=== PATIENT | female | born 1945 | race Caucasian/White ===

== ENCOUNTER 2019-07-20 15:00 | Inpatient (IN) | payer MEDICARE ==
--- OUTSIDE RECORDS SUMMARY | 2019-07-20 15:20 | XMS REPORT | Summary of Care ---
:1945 Author Organization [facility] Address 1 [facility] [place] [address] Care Team Providers Name Role Phone Carroll Patel MD Primary Care Provider Reason for Referral Diagnostic Testing (Routine) Status Reason Specialty Diagnoses / Referred By Referred To Procedures Contact Contact Authorized Radiology Diagnoses S/P arterial stent Theron Thompson NP [facility] Procedures VL ABDOMEN DUPLEX AORTA GRAFT LIMITED [address] [place] [address] [address] [phone] Phone: Reason for Visit Reason Comments Follow Up Encounter Details Date Type Department Care Team Description 06/14/2019 Office Visit [facility], S/P arterial stent Surgery MD Irma (Primary Dx) [address] [facility] [place] [id number] [place] [address] Allergies Active Allergy Reactions Severity Noted Date Comments Bactrim Hives Codeine Other 04/27/[address] Dye Hives, Respiratory Reaction 04/27/2019 Keflex Hives 07/31/2007 documented as of this encounter (statuses as of 06/22/2019) Medications Medication Sig Dispensed Refills Start Date End Date Status clorazepate BID. 0 Active (TRANXENE-T) 7.5 MG PO TABS M-VIT PO TABS Take 1 Tab by 0 Active mouth *DAILY. VITAMIN E 400 UNIT PO Take 1 Tab by 0 Active TABS mouth *DAILY. SOJIZ-3-FDGP ETHYL 2 BID. 0 Active ESTERS (OMACOR) 1 GM PO CAPS Fenofibrate Micronized Take 1 Cap by 30 5 06/25/2008 Active (ANTARA) 130 MG Oral mouth DAILY. Cap PLAVIX 75 MG Oral Take 75 mg by 0 Active TabIndications: Other mouth DAILY. and unspecified hyperlipidemia albuterol Take 2 Puffs by 0 Active (PROVENTIL,VENTOLIN) inhalation EVERY 90 mcg/act FOUR HOURS NEEDED. albuterol-ipratropium 3 mg by 0 Active (DUO-NEB) 0.5-2.5 (3) Inhalation-SVN MG/3ML Inhalation route EVERY FOUR Solution HOURS NEEDED. docusate sodium Take 100 mg by 0 Active (COLACE) 100 MG Oral mouth DAILY. Cap Magnesium 400 MG Oral Take by mouth 0 Active Cap DAILY. aspirin 325 MG Oral Take 325 mg by 0 Active TabIndications: mouth DAILY. alternate days with 81 Indications: mg alternate days with 81 mg ondansetron (ZOFRAN) 8 Take 8 mg by mouth 0 Active MG Oral Tab NEEDED. Nutritional Take by mouth 0 Active Supplements (BOOST PO) DAILY. OMEPRAZOLE PO Take 40 mg by 0 Active mouth DAILY. Varenicline Tartrate Take 1 Package by 1 Kit 0 06/14/2019 Active (CHANTIX STARTING mouth DIRECTED. MONTH ) 0.5 MG X 11 & 1 MG X 42 Oral Misc documented as of this encounter (statuses as of 06/22/2019) Active Problems Problem Noted Date Chronic mesenteric ischemia 04/30/2019 Weight loss, unintentional 04/28/2019 Anxiety 04/28/2019 Ischemic colitis 04/12/2019 Carotid stenosis 08/08/2008 Tobacco use disorder COPD (chronic obstructive pulmonary disease) Other and unspecified hyperlipidemia Dyspepsia and other specified disorders of function of stomach Essential hypertension documented as of this encounter (statuses as of 06/22/2019) Immunizations Name Administration Dates Next Due Influenza (IM) Preservative Free 04/14/2019 documented as of this encounter Social History Tobacco Use Types Packs/Day Years Used Date Current Every Day Smoker Cigarettes 1 55 Smokeless Tobacco: Never Used Alcohol Use Drinks/Week oz/Week Comments No stopped about 10 years ago Alcohol Habits Answer Date Recorded How often do you have a drink containing alcohol? Not asked How many drinks containing alcohol do you have on a Not asked typical day when you are drinking? How often do you have six or more drinks on one Less than monthly 04/27/2019 occasion? Social Isolation Answer Date Recorded In a typical week, how many times do you More than three times a week 2018 talk on the phone with family, friends, or neighbors? How often do you get together with friends More than three times a week 04/27 or relatives? How often do you attend presybeterian or Never 04/27/2019 restorationism services? Do you belong to any clubs or No 04/27/2019 organizations such as presybeterian groups, unions, fraternal or athletic groups, or school groups? How often do you attend meetings of the Never 04/27/2019 clubs or organizations you belong to? Are you now , , , 04/27/2019 , never or living with a partner? Physical Activity Answer Date Recorded On average, how many days per week do you engage in moderate to 0 days 2018 strenuous exercise (like walking fast, running, jogging, dancing, swimming, biking, or other activities that cause a light or heavy sweat)? On average, how many minutes do you engage in exercise at this 0 min 2018 level? Stress Answer Date Recorded Do you feel stress - tense, restless, nervous, or anxious, Not at all 2018 or unable to sleep at night because your mind is troubled all the time - these days? Education Answer Date Recorded What is the highest level of school you have High school graduate 04/27/2019 completed or the highest degree you have received? Intimate Partner Violence Answer Date Recorded Within the last year, have you been afraid of your partner or No 04/27/2019 ex-partner? Within the last year, have you been humiliated or emotionally No 04/27/2019 abused in other ways by your partner or ex-partner? Within the last year, have you been kicked, hit, slapped, or No 04/27/2019 otherwise physically hurt by your partner or ex-partner? Within the last year, have you been raped or forced to have any No 04/27/2019 kind of sexual activity by your partner or ex-partner? Food Insecurity Answer Date Recorded Within the past 12 months, you worried that your food would Never true 2018 run out before you got money to buy more. Within the past 12 months, the food you bought just didn't Never true 2018 last and you didn't have money to get more. Transportation Needs Answer Date Recorded In the past 12 months, has lack of transportation kept you from No 04/27/2019 medical appointments or from getting medications? In the past 12 months, has lack of transportation kept you from No 04/27/2019 meetings, work, or getting things needed for daily living? Sex Assigned at Date Recorded Not on file Job Start Date Occupation Industry Not on file Not on file Not on file Travel History Travel Start Travel End No recent travel history available. documented as of this encounter Last Filed Vital Signs Vital Sign Reading Time Taken Comments Blood Pressure 101/62 06/14/2019 10:07 AM EST Pulse 92 06/14/2019 10:07 AM EST Temperature - - Respiratory Rate - - Oxygen Saturation - - Inhaled Oxygen Concentration - - Weight 52.2 kg (115 lb) 06/14/2019 10:07 AM EST Height 175.3 cm (5' 9") 06/14/2019 10:07 AM EST Body Mass Index 16.98 06/14/2019 10:07 AM EST documented in this encounter Progress Notes Theron Thompson NP - 06/14/2019 11:00 AM EST PATIENT: Pat Smith : 1945 DATE OF SERVICE: 06/14/2019 REFERRING PRACTITIONER: Theron Thompson PRIMARY CARE PROVIDER: Carroll Patel (Inactive) Subjective CHIEF COMPLAINT: No chief complaint on file. Subjective HISTORY OF PRESENT ILLNESS: Pat Smith is a 73-y.o. female who is seen in 1 month follow up status post: Procedure: Thoracic aortoram, abdominal aortogram, mesenteric angiogram, superior mesenteric artery angioplasty/stent, right brachial artery on 05/01/[address] Ceballos. Today patient reports she has been eating 3 meals plus a couple of snacks a day. She has gained a few more pounds from last visit. She denies any abdominal pain, nausea, or vomiting with eating. She denies any pain, numbness or tingling of right lower arm or hand. She denies any chest pain or shortness of breath. From Dr. Vásquez's note 05/02/2019 73-y.o.femalew/ history of HTN, HLD, R carotid endarterectomy, consulted forchronic mesenteric ischemiawho presents with abdominal pain associated with eating, N/V, and weight loss. Current Outpatient Medications Medication Sig albuterol (PROVENTIL,VENTOLIN) 90 mcg/act Take 2 Puffs by inhalation EVERY FOUR HOURS NEEDED. albuterol-ipratropium (DUO-NEB) 0.5-2.5 (3) MG/3ML Inhalation Solution 3 mg by Inhalation-SVNroute EVERY FOUR HOURS NEEDED. aspirin 325 MG Oral Tab Take 325 mg by mouth DAILY. Indications: alternate days with 81 mg clorazepate (TRANXENE-T) 7.5 MG PO TABS BID. docusate sodium (COLACE) 100 MG Oral Cap Take 100 mg by mouth DAILY. Fenofibrate Micronized (ANTARA) 130 MG Oral Cap Take 1 Cap by mouth DAILY. M-VIT PO TABS Take 1 Tab by mouth *DAILY. Magnesium 400 MG Oral Cap Take by mouth DAILY. Nutritional Supplements (BOOST PO) Take by mouth DAILY. MYDDY-4-ASSR ETHYL ESTERS (OMACOR) 1 GM PO CAPS 2 BID. OMEPRAZOLE PO Take 40 mg by mouth DAILY. ondansetron (ZOFRAN) 8 MG Oral Tab Take 8 mg by mouth NEEDED. PLAVIX 75 MG Oral Tab Take 75 mg by mouth DAILY. VITAMIN E 400 UNIT PO TABS Take 1 Tab by mouth *DAILY. No current facility-administered medications for this visit. Allergies Allergen Reactions Bactrim Hives Codeine Other Keeps her awake Contrast [Ct Dye] Hives and Respiratory Reaction Keflex Hives Objective PHYSICAL EXAMINATION: VITALS: LMP (LMP Unknown) GENERAL: awake, alert, oriented. NECK: no mass, no adenopathy, no thyromegaly. ABDOMEN: soft, non tender, without masses or organomegaly. EXTREMITIES: no clubbing, cyanosis, or edema. NEUROLOGICAL: Oriented X 3, no focal deficits noted. PULSES: left radial +2 normal and right radial +2 normal. INCISION: Well healed DIAGNOSTICS: 06/14/2019 IMPRESSIONS: Hx: SMA stenting, patient denies symptoms. Duplex imaging of the stented SMA shows it to be widly patent with a proximal velocity of 470cm/s. No previous exam. Plan IMPRESSION AND PLAN: Pat Post is progressing well. The wound is well healed. Duplex indicating widely patient stent with increased velocity of 470 cm/s. ICD-9-CM ICD-10-CM 1. S/P arterial stent V45.89 Z95.[address] Ceballos. Please refer to his note for further details. Continue ASA and Plavix. Recommend walking for exercise. Lengthy discussion of smoking cessation. Patient willing to try Chantix. Patient to follow up with PCP next week. Follow up with Vascular Surgery in 6 months for abdominal duplex or sooner with problems. Author: Theron Thompson NP 06/14/2019 09:59 Associated attestation - Irma Ceballos MD - 06/22/2019 1:51 PM [facility] Supervising MD Documentation Date of Service: 06/14/2019. B# [id number] I saw and evaluated the patient. Discussed with resident and agree with the resident's findings andplan as documented in the resident's note. Additional Comments: Patient doing well, tolerating diet, has gained weight, no complaints. Denies postprandial pain. Patient continues to smoke. Mesenteric artery duplex demonstrated widely patent SMA stent. Left brachial access clean dry intact. I emphasized the patient the importance of smoking cessation and the risk of recurrent stent stenosis and occlusion with continued smoking and the need for open repair. Patient seems not motivated. Continue aspirin Plavix for now. Follow-up in 6 months. All questions and concerns were addressed. Irma Ceballos MD Supervising Physiciandocumented in this encounter Plan of Treatment Date Type Specialty Care Team Description 12/20/2019 Ancillary Procedure Radiology 12/20/2019 Office Visit Vascular Surgery Irma Ceballos MD [address] [address] [phone] Name Type Priority Associated Diagnoses Order Schedule VL ABDOMEN DUPLEX AORTA Imaging Routine S/P arterial stent Expected: 2018, GRAFT LIMITED Expires: 08/12/2020 Health Maintenance Due Date Last Done Comments MEDICARE ANNUAL WELLNESS VISIT 1945 DTaP/Tdap/Td Vaccines (1 - 1954 Tdap) DEPRESSION SCREENING 1955 HIV SCREENING 1958 MAMMOGRAM (SCREENING) 1983 Colonoscopy 1993 ZOSTER IMMUNIZATION SERIES (1 1993 of 2) FALL RISK ASSESSMENT 2008 OSTEOPOROSIS SCREENING 2008 PNEUMOCOCCAL 65+YRS (1 of 2 - 2008 PCV13) LIPID DISORDER SCREENING 12/06/2009 12/06/2008, 12/26/2007 LUNG CANCER SCREENING 04/28/2020 04/28/2019 INFLUENZA VACCINE Completed 04/14/2019 HEPATITIS A IMMUNIZATION Aged Out No longer eligible based SERIES on patient's age to complete this topic HPV IMMUNIZATION SERIES Aged Out No longer eligible based on patient's age to complete this topic MENINGOCOCCAL VACCINE IMM Aged Out No longer eligible based on patient's age to complete this topic documented as of this encounter Implants Implanted Type Area Web Merchant Device Shelf Model / Identifier Expiration Date Serial / Lot Visi-Pro Stent 0.035" [id number] - [id number] Left: Artery, [employer] [id number] / Implanted: Qty: 1 on 05/01/2019 by Irma Ceballos MD at [facility] / [id number] documented as of this encounter Results Not on filedocumented in this encounter Visit Diagnoses Diagnosis S/P arterial stent documented in this encounter Insurance Payer Benefit Plan / Subscriber ID Effective Dates Phone Address Type Group MEDICARE MEDICARE PART A xxxxxxxxxxx 2008-Present Medicare & B [facility] xxxxxxxxxxx 2018-Present [facility] OPTIONS documented as of this encounter Advance Directives Code Status Date Activated Date Inactivated Comments Full Code 04/27/2019 11:10 PM Does the patient have decision making capacity? Yes Order was discussed with: Patient I discussed all options and patient/surrogate requested and agreed to: Full Code Full Code 04/12/2019 12:48 AM 04/27/2019 4:23 PM Does the patient have decision making capacity? Yes Order was discussed with: Unable to determine at this time I discussed all options and patient/surrogate Full Code requested and agreed to:
--- NOTE | 2019-07-20 15:55 | ED ---
Palpitations / Dysrhythmia - HPI Summary HPI Summary: Pt is a 73 y/o F presenting to the ED with a chief complaint of palpitations. Pt states she had an echocardiogram this morning at Dr. Whyte office, Dr. Rodriguez looked at it, and advised the pt to come into the ED to be evaluated as she was possibly in AFib and her EF was not good. She reports coughing and some SOB w/ exertion, woo after recent dx of CHF and recent medication changes. She denies CP. Takes lasix. - History of Current Complaint Chief Complaint: EDDysrhythmPalp Time Seen by Provider: 07/20/19 15:34 Hx Obtained From: Patient Onset/Duration: Sudden Onset, Lasting Hours, Still Present Timing: Constant Severity Initially: Mild Severity Currently: Mild Character: Irregular Aggravating: Nothing Alleviating: Nothing Associated Signs & Symptoms: Shortness of Breath - Allergy/Home Medications Allergies/Adverse Reactions: Allergies Allergy/AdvReac Type Severity Reaction Status Date / Time Sulfa (Sulfonamide Allergy Severe Anaphylatic Verified 10/06/18 10:29 Antibiotics) Shock cephalexin [From Keflex] Allergy Mild Rash And Verified 10/06/18 10:29 Itching codeine Allergy Mild Anxiety Verified 10/06/18 10:29 Iodinated Contrast Media Allergy Mild Rash And Verified 10/06/18 10:29 [Iodinated Contrast- Oral Itching and IV Dye] Dieusqu-Klc-Tlp Reductase Allergy Unknown Verified 10/06/18 10:29 Inhibitor Reaction Details sulfamethoxazole Allergy Unknown Verified 10/06/18 10:29 [From Bactrim] Reaction Details trimethoprim [From Bactrim] Allergy Unknown Verified 10/06/18 10:29 Reaction Details Home Medications: Home Medications Aspirin EC TAB* [Ecotrin EC Low Dose 81 MG*] 81 mg PO EVERY OTHER DAY 07/20/19 [ History Confirmed 07/20/19] Furosemide TAB* [Lasix TAB*] 40 mg PO DAILY 07/20/19 [History Confirmed 07/20/19 ] Lactose-Reduced Food [Boost] 237 ml PO DAILY 07/20/19 [History Confirmed ] Potassium Gluconate [Potassium] 99 mg PO DAILY 07/20/19 [History Confirmed 07/20] Triamterene/HCTZ 75-50 MG* [Maxzide 75-50*] 1 tab PO DAILY 07/20/19 [History Confirmed 07/20/19] PMH/Surg Hx/FS Hx/Imm Hx Previously Healthy: Yes Endocrine/Hematology History: Reports: Hx Anticoagulant Therapy - plavix, asa, Hx Anemia Denies: Hx Diabetes Cardiovascular History: Reports: Hx Congestive Heart Failure - recent dx as of , Hx Coronary Artery Disease, Hx Hypertension - on meds, Other Cardiovascular Problems/Disorders - STENT IN RIGHT CAROTID ARTERY 2008 Respiratory History: Reports: Hx Chronic Obstructive Pulmonary Disease (COPD) GI History: Reports: Other GI Disorders - ischemic colitis w/ stent placed History: Denies: Hx Dialysis, Hx Renal Disease Musculoskeletal History: Reports: Hx Arthritis Sensory History: Reports: Hx Cataracts - BILAT, Hx Contacts or Glasses Denies: Hx Hearing Aid Opthamlomology History: Reports: Hx Cataracts - BILAT, Hx Contacts or Glasses Neurological History: Reports: Other Neuro Impairments/Disorders - carotid stent Psychiatric History: Reports: Hx Anxiety - Cancer History Cancer Type, Location and Year: non-hodgkin's follicular lymphoma, in remission for 3yrs as of 07/20/2019 Hx Chemotherapy: Yes - Surgical History Surgery Procedure, Year, and Place: tonsillectomy, appy, tubal, carotid stent, cyst removed from right breast Hx Anesthesia Reactions: No Infectious Disease History: No Infectious Disease History: Denies: Traveled Outside the [place] in Last 30 Days - Family History Known Family History: Positive: Other - SBO - Social History Alcohol Use: None Hx Substance Use: No Substance Use Type: Reports: None Hx Tobacco Use: Yes Smoking Status (MU): Current Every Day Smoker Type: Cigarettes Amount Used/How Often: 1/2 ppd Length of Time of Smoking/Using Tobacco: 50 YRS Have You Smoked in the Last Year: Yes Review of Systems Positive: Palpitations. Negative: Chest Pain Positive: Shortness Of Breath - w/ exertion, Cough All Other Systems Reviewed And Are Negative: Yes Physical Exam - Summary Physical Exam Summary: Constitutional: Elderly, chronically ill-appearing, Alert. (-) Distressed Skin: Warm, Dry HENT: Normocephalic; Atraumatic Eyes: Conjunctiva normal Neck: Musculoskeletal ROM normal neck. (-) JVD, (-) Stridor, (-) Nuchal rigidity Cardio: Rhythm regular, rate tachycardic, Heart sounds normal; Intact distal pulses; Radial pulses are 2+ and symmetric. (-) Murmur Pulmonary/Chest wall: Effort normal. (-) Respiratory distress, Mild expiratory wheezing, (-) Rales Abd: Soft, (-) tenderness, (-) Distension, (-) Guarding, (-) Rebound Musculoskeletal: (-) Edema Lymph: (-) Cervical adenopathy Neuro: Alert, Oriented x3 Psych: Mood and affect Normal Triage Information Reviewed: Yes Vital Signs On Initial Exam: Initial Vitals Temp Pulse Resp BP Pulse Ox 98.4 F 97 22 121/72 99 07/20/19 15:04 07/20/19 15:04 07/20/19 15:04 07/20/19 15:04 07/20/19 15:04 Vital Signs Reviewed: Yes Procedures - Sedation Patient Received Moderate/Deep Sedation with Procedure: No Diagnostics - Vital Signs Vital Signs Temp Pulse Resp BP Pulse Ox 07/20/19 15:04 98.4 F 97 22 121/72 99 - Laboratory Result Diagrams: 07/20/19 15:44 07/20/19 15:44 Lab Statement: Any lab studies that have been ordered have been reviewed, and results considered in the medical decision making process. - Radiology CXR Radiology Interpretation Completed By: Radiologist Summary of Radiographic Findings: Pulmonary interstitial edema with bilateral pleural effusions. ED physician has reviewed this report. - EKG 1515 Cardiac Rate: Tachycardia - 94bpm EKG Rhythm: Sinus Tachycardia ST Segment: Normal Ectopy: PVCs Summary of EKG Findings: An EKG at 1515 reveals sinus tachycardia at 94bpm with PVCs. No STEMI. No acute changes. ED physician has reviewed and interpreted this EKG. Course/Dx - Course Course Of Treatment: 73-year-old female with a history of recently diagnosed CHF , COPD who presents with concern for worsening heart failure and new tachycardia found on echo today. -Vital signs of heart rate in the low 90s to low 100s, sinus arrhythmia. Mild expiratory wheezing on exam. Labs notable for troponin 0.03, elevated BNP 1200. Magnesium of 1.7 repleted, as well as potassium 3.8. -Chest x-ray shows interstitial edema bilateral pleural effusions. Patient to be admitted to the hospitalist team for worsening heart failure, cardiology to be consulted. Will attempt to get echo record from [place] - Diagnoses Provider Diagnoses: CHF (congestive heart failure) Discharge ED - Sign-Out/Discharge Documenting (check all that apply): Patient Departure - Discharge Plan Condition: Stable Disposition: ADMITTED TO [facility] Referrals: Thompson Whyte, [Primary Care Provider] - - Billing Disposition and Condition Condition: STABLE Disposition: Admitted to [facility] - Attestation Statements Document Initiated by Scribe: Yes Documenting Scribe: Merle Spencer Provider For Whom Scribe is Documenting (Include Credential): Niurka Dick MD. Scribe Attestation: Merle Wang, scribed for Niurka Dick MD. on 07/20/19 at 1724. Scribe Documentation Reviewed: Yes Provider Attestation: The documentation as recorded by the scribe, Merle Spencer accurately reflects the service I personally performed and the decisions made by me, Niurka Dick MD. Status of Scribe Document: Viewed Consult Consult: [id number] - I spoke with Dr. Lance who accepts pt for [facility]
[2019-07-20 15:58] LABS: ABS Eosinophils 0.1 10^3/ul (0-0.6); ABS Lymphocytes 1.1 10^3/ul (1.0-4.8); ABS Monocytes 0.7 10^3/ul (0-0.8); ABS Neutrophils 4.1 10^3/ul (1.5-7.7); Eosinophil % 2.1 %; Hematocrit 32 % (35-47); Hemoglobin 10.3 g/dL (12.0-16.0); Lymphocyte % 18.1 %; Mean Corpuscular HGB Conc 33 g/dL (31-36); Mean Corpuscular Hemoglobin 30 pg (27-31); Mean Corpuscular Volume 92 fL (80-97); Mean Platelet Volume 7.1 fL (7.4-10.4); Nucleated Red Blood Cells % 0.1; Platelet Count 284 10^3/uL (150-450); Red Blood Count 3.45 10^6 /uL (3.70-4.87); Red Cell Distribution Width 16 % (10-15)
[2019-07-20 16:08] LABS: INR 1.45 (0.82-1.09)
[2019-07-20 16:24] LABS: Troponin I 0.03 ng/mL (<0.03)
[2019-07-20 16:26] LABS: ALT 77 U/L (7-52); AST 34 U/L (13-39); Albumin 3.3 g/dL (3.2-5.2); Albumin/Globulin Ratio 1.6 (1-3); Alkaline Phosphatase 121 U/L (34-104); Anion Gap 6 mmol/L (2-11); BUN/Creatinine Ratio 38.9 (8-20); Blood Urea Nitrogen 21 mg/dL (6-24); CO2 Carbon Dioxide 31 mmol/L (22-32); Calcium 8.2 mg/dL (8.6-10.3); Chloride 97 mmol/L (101-111); EGFR African American 133.2 (>60); EGFR Non-African American 110.1 (>60); Globulin 2.1 g/dL (2-4); Glucose 106 mg/dL (70-100); Magnesium 1.7 mg/dL (1.9-2.7); Potassium 3.8 mmol/L (3.5-5.0); Sodium 134 mmol/L (135-145); Total Protein 5.4 g/dL (6.4-8.9)
[2019-07-20] MEDS ORDERED: Potassium Chlor TAB* 20 MEQ TAB.ER PO ONE (16:39)
[2019-07-20] MEDS ORDERED: Magnesium Sulfate IV* 3 GM in NS 0.9% 100 ML* 100 ML IVPB ONE (16:39)
[2019-07-20 16:47] LABS: TSH (Thyroid Stimulating Horm) 3.88 mcIU/mL (0.34-5.60)
[2019-07-20] MEDS ORDERED: NS 0.9% 100 ML* 100 ML ONE (17:01)
[2019-07-20] MEDS ORDERED: Polyethylene Glycol 3350* 17 GM PACKET PO PRN (17:52)
[2019-07-20] MEDS ORDERED: Furosemide IV* 10 MG/ML VIAL (40 MG) IV ONE (18:02)
[2019-07-20] MEDS ORDERED: Magnesium Sulfate 2 GM IV* 2 GM/50 ML BAG IVPB ONE (18:19)
[2019-07-20 18:54] LABS: Total Iron Binding Capacity 406 mcg/dL (250-450); Transferrin 290 mg/dL (203-362)
[2019-07-20 19:16] LABS: Ferritin 39.2 ng/mL (11-307)
[2019-07-20 19:19] LABS: Folate > 20.00 ng/mL (>3.99)
[2019-07-20 19:34] LABS: % Iron Saturation 5 % (15-55); Iron < 20 ug/dL (50-212)
[2019-07-20 19:34] LABS: Troponin I 0.04 ng/mL (<0.03)
[2019-07-20] MEDS: Enoxaparin(*) 40 MG/0.4 ML SYR SUBCUT SCH (20:14)
[2019-07-20] MEDS: Albuterol/Ipratropium NEB.SOL* Albuterol 2.5 MG/Ipratropium 0.5 MG 3 ML INH SCH ×2 (20:17→23:12)
--- NOTE | 2019-07-20 21:40 | HP ---
CC: Dr. Thompson Whyte; Dr. Sudha Wu; Dr. Eric Rodriguez * HISTORY AND PHYSICAL: DATE OF ADMISSION: 07/20/19 PRIMARY CARE PROVIDER: Dr. Thompson Whyte. OTHER PROVIDERS: 1. Dr. Sudah Wu. 2. Dr. Eric Rodriguez. ATTENDING PHYSICIAN: Dr. Eren Lance * (dictated by JOSE RAUL Sawyer). CHIEF COMPLAINT: Shortness of breath, lower extremity edema. HISTORY OF PRESENT ILLNESS: Ms. Smith is a 73-year-old female with past medical history of hypertension, hyperlipidemia, carotid artery stenosis with right- sided stent placement, who presented to the ER today at the suggestion of her primary care provider after abnormal findings on her echo performed this morning. The patient states Dr. Rodriguez called Dr. Whyte, who then called the patient recommending that she come to [facility] for admission for an EF of less than 20%, which is a new finding. She was also noted to have a heart rate of 144 and was in atrial fibrillation during her examination. The patient states that she has been in and out of the hospital since May and that this will be her seventh admission since that time with a range of diagnoses including bronchitis, COPD exacerbation, pneumonia, heart failure exacerbation. She states that she has not felt completely well since May and that she has had heart failure exacerbation symptoms since May, but they have worsened in the last approximately 1 week. She states that she has had an increase in cough which is occasionally productive, although she denies fever, chills, but is intermittently cold. She reports increased shortness of breath, but remains on her baseline 3 L of oxygen. She also complains of dyspnea on exertion, paroxysmal nocturnal dyspnea leading to her sleeping in a chair most nights. She has bilateral lower extremity edema which has decreased recently, but she notes that her legs were very edematous approximately 2 days ago. She denies recent diet changes or medications. She denies recent illness. She denies chest pain. She denies dizziness, lightheadedness, loss of consciousness, difficulty swallowing or speaking. Again, she denies chest pain. She denies abdominal pain, nausea, vomiting , diarrhea, constipation, myalgias, arthralgias. In the ER, the patient received a full workup which revealed a normocytic anemia , which is chronic. An INR was elevated to 1.45. Troponin elevated to 0.03. Magnesium was 1.7. BNP was elevated to 1200. An EKG was obtained and revealed heart rate of 94 with PACs and no ST changes. Chest x-ray shows pulmonary edema with bilateral pleural effusions. In the ER, the patient received potassium 40 mg p.o. Hospitalist team was asked to evaluate the patient for admission. PAST MEDICAL HISTORY: 1. Hypertension. 2. Hyperlipidemia. 3. COPD. 4. Carotid artery stenosis, status post stenting. 5. Peripheral vascular disease. 6. History of non-Hodgkin lymphoma, status post chemo in 2016, follows with Dr. Wu. 7. Depression. 8. Iron deficiency anemia. PAST SURGICAL HISTORY: 1. Mesenteric artery stenting for ischemic colitis at [facility]. 2. Right carotid artery stent. 3. Appendectomy. 4. Tonsillectomy. 5. Tubal ligation. 6. Hysterectomy. HOME MEDICATIONS: 1. Albuterol HFA inhaler 2 puffs inhalation q.4 hours p.r.n. 2. Aspirin 81 mg ever other day, alternating with 325 mg every other day. 3. Clopidogrel 75 mg p.o. daily. 4. Docusate 100 mg p.o. daily. 5. Furosemide 40 mg p.o. daily. 6. Boost 237 mL p.o. daily. 7. Multivitamins 1 tab p.o. b.i.d. 8. Omeprazole 40 mg p.o. daily. 9. Ondansetron 8 mg p.o. q.8 hours p.r.n. 10. Polyethylene glycol 17 g p.o. q.3 days p.r.n. 11. Potassium gluconate 99 mg p.o. daily. 12. Vitamin E cap 400 units p.o. b.i.d. DRUG ALLERGIES: 1. SULFA/BACTRIM, anaphylaxis. 2. CEPHALEXIN, rash, itching. 3. CODEINE, anxiety. 4. IODINATED CONTRAST, rash, itching. 5. STATINS. FAMILY HISTORY: Father had emphysema. Mother had atherosclerosis. No family history of cancer, CVA, diabetes mellitus. SOCIAL HISTORY: The patient is a current smoker. She smokes 1 pack per day for approximately 55 years. She does not use alcohol. 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 She is . She has 3 children. She lives with one of her sons. In the event that she is unable to make her own medical decision, she has appointed her daughter, Marlena Ayala, to be her surrogate decision maker. REVIEW OF SYSTEMS: A 14-point review of systems has been performed. All the pertinent positives and negatives are in the HPI. Other systems are negative. PHYSICAL EXAMINATION GENERAL: Ms. Smith is a well-developed, thin, malnourished appearing older white woman who appears somewhat older than her stated age. She was sitting at the edge of her bed with her lower extremities on the floor. She appears to be in no acute distress, although she has some mild increased work of breathing, but can still talk in full sentences. HEENT: PERRL. EOMI. Visual higgins are grossly intact. Nonicteric sclerae. Hearing is intact. Oral mucous membranes are moist. There are no lesions. Oropharynx is clear. Tongue is at midline. Palate elevates symmetrically. PULMONARY: Symmetrical chest expansion without use of accessory muscles. There are fine rales throughout bilateral lungs with end-expiratory wheezes. Breath sounds are diminished throughout. CARDIOVASCULAR: Sinus tachycardia. S1, S2 present. No murmurs, rubs, clicks, or gallops. There is no JVD. There is 2+ pitting pretibial edema to bilateral lower extremities. ABDOMEN: Flat. Bowel sounds in all quadrants. Soft without tenderness to palpation. NEUROLOGIC: The patient is awake. She is alert and oriented x3. Cranial nerves II through XII are grossly intact. She is able to move all of her extremities with a motor strength of 5/5 bilaterally in upper and lower extremities. DIAGNOSTIC STUDIES AND LABORATORY DATA: WBC 6.0, hemoglobin 10.3, hematocrit 32, MCV 92. Sodium 134, chloride 97, BUN/creatinine 38/0.9, glucose 106, calcium 8.2, magnesium 1.7. ALT 77, alk phos 121. Troponin 0.03. BNP 1204. EKG: Rate of [address] changes. Chest x-ray, impression: Pulmonary interstitial edema with bilateral pleural effusions. ASSESSMENT AND PLAN: Ms. Smith is a 73-year-old female with a past medical history of hypertension; hyperlipidemia; carotid artery stenosis, status post stenting; non- Hodgkin lymphoma who presented to the ER today at the suggestion of her primary care provider after an echo performed today revealed an ejection fraction of less than 20%. The patient will be admitted for: 1. Acute systolic heart failure. The patient presents with shortness of breath , dyspnea on exertion, paroxysmal nocturnal dyspnea, bilateral lower extremity edema. She and her daughter report echo findings of reduced systolic function with an ejection fraction of less than 20%. At this time, I have yet to see her echo report, although it was reported that the reduced ejection fraction is a new finding. I have no priors to compare her current echo to. She does appear to be decompensated. At this time, she will be admitted. She will be started on IV Lasix with a dose of 40 now. The patient's systolic blood pressure is in the 120s, and therefore, I am hesitant to go higher. Intake, output, and daily weights have been ordered. A cardiac consult has been ordered. Dr. Newman has been notified and plans to see the patient in the morning. 2. Chronic obstructive pulmonary disease. The patient has end-expiratory wheezing on exam. I believe that this may be irritation from fluid overload and do not believe she is in overt exacerbation at this time. She will be placed on DuoNeb q.4 hours while awake plus flutter valve. She will continue on her 3 L home oxygen. 3. Hypertension. The patient has a reported history of hypertension, which appears in her chart as well. Listed on her medication list is Maxzide, which the patient states she does not take. Her only medication for hypertension is furosemide. Her oral furosemide will be held at this time and she will be started on IV furosemide. 4. Electrolyte abnormalities. The patient was noted to have a low normal potassium which was repleted in the ER. She was also noted to have hypomagnesemia which was also repleted. Her electrolytes should be checked regularly, especially in the setting of increased Lasix use, as she will likely need potassium repletion and possibly magnesium repletion. 5. Hyperlipidemia. The patient is currently not on any medications for this, although she has reported hyperlipidemia in her chart. We will obtain a lipid panel. She does have a reported allergy STATIN medications. 6. Gastroesophageal reflux disease. Continue omeprazole. 7. Tobacco abuse. The patient is declining nicotine patch, but this will be placed on her medication list if she changes her mind. 8. DVT prophylaxis. The patient has been placed on enoxaparin 40 subcu daily. 9. Code status. DNR. TIME SPENT: Approximately 60 minutes were spent on this admission, greater than half of that time spent [id number] with the patient and her daughter obtaining history, performing physical, and reviewing the plan of care. The case has been discussed with my attending, Dr. Lance, who is in agreement with the plan of care. JOSE RAUL WISE [id number]/CPS #: [id number] LAW
[2019-07-20] MEDS: Acetaminophen TAB* 325 MG PO PRN (21:48)
[2019-07-20 23:05] LABS: Troponin I 0.04 ng/mL (<0.03)
[2019-07-21] MEDS: Albuterol/Ipratropium NEB.SOL* Albuterol 2.5 MG/Ipratropium 0.5 MG 3 ML INH SCH ×2 (02:21→07:40)
[2019-07-21] MEDS: Acetaminophen TAB* 325 MG PO PRN ×3 (02:43→20:32)
[2019-07-21 05:56] LABS: HDL Cholesterol 33.3 mg/dL; Magnesium 2.2 mg/dL (1.9-2.7)
[2019-07-21] MEDS: Nicotine PATCH 21 MG/24 HR* PATCH TRANSDERM PRN (06:01)
--- NOTE | 2019-07-21 09:01 | PN ---
Subjective Date of Service: 07/21/19 Interval History: No acute events overnight. Admitted yesterday for HFrEF. Patient reports feeling very anxious, overwhelmed with diagnoses. Usually on 2L O2 at home but recently up to 3L. Denies fevers, chills, abd pain, n/v/c/d, dysuria. Sometimes has nonproductive cough associated with SOB. Objective Active Medications: Acetaminophen (Tylenol Tab*) 650 mg PO Q4H PRN PRN Reason: mild to moderate pain Last Admin: 07/21/19 02:43 Dose: 650 mg Albuterol (Ventolin Hfa Inhaler*) 2 puff INH Q4H PRN PRN Reason: wheezing, SOB Albuterol/Ipratropium (Duoneb (Albuterol 2.5 Mg/Ipratropium 0.5 Mg)) 1 neb INH RT.[id number] AWAKE PRN PRN Reason: WHEEZING Aspirin (Aspirin Ec Tab*) 81 mg PO DAILY MAL Clopidogrel Bisulfate (Plavix Tab*) 75 mg PO QAM MAL Docusate Sodium (Colace Cap*) 100 mg PO DAILY MAL Enoxaparin Sodium (Lovenox(*)) 40 mg SUBCUT Q24H MAL Last Admin: 07/20/19 20:14 Dose: 40 mg Nicotine (Nicotine Patch 21 Mg/24 Hr*) 1 patch TRANSDERM DAILY@0800 PRN PRN Reason: CRAVINGS Last Admin: 07/21/19 06:01 Dose: 1 patch Pantoprazole Sodium (Protonix Tab*) 40 mg PO DAILY MAL Polyethylene Glycol/Electrolytes (Miralax*) 17 gm PO Q3D PRN PRN Reason: CONSTIPATION Vital Signs - 8 hr 07/21/19 03:23 Temperature 97.5 F Pulse Rate 88 Respiratory 18 Rate Blood Pressure 113/80 (mmHg) O2 Sat by Pulse 98 Oximetry Oxygen Devices in Use Now: Nasal Cannula Appearance: frail anxious appearing woman, no increased WOB Eyes: No Scleral Icterus Ears/Nose/Mouth/Throat: Clear Oropharnyx, Mucous Membranes Moist Neck: NL Appearance and Movements; NL JVP, Trachea Midline Respiratory: - - end expiratory wheeze, no crackles Cardiovascular: RRR Abdominal: NL Sounds; No Tenderness; No Distention, No Hepatosplenomegaly Extremities: - - 1+ edema fdc up shins Neurological: Alert and Oriented x 3 Result Diagrams: 07/20/19 15:44 07/20/19 15:44 Assess/Plan/Problems-Billing Assessment: 73W with HTN, CAD s/p stents, carotid artery stenosis, active tobacco use, COPD on home O2, PVD, lymphoma s/p chemo, MDD, presents with acute on chronic heart failure, found with newly reduced EF. - Patient Problems (1) Heart failure with reduced ejection fraction Comment: EF < 20%. New diagnosis - previously with HFpEF. - appreciate cardiology recs - cont to diurese with furosemide 20mg IV daily - starting metoprolol today, can start lisinopril tomorrow depending on BP (and eventually spironolactone) - monitor BMP, replete lytes, monitor Is & Os and daily weights (2) CAD (coronary artery disease) Comment: Also with carotid disease and ischemic colitis s/p mesenteric stenting. - cont ASA, clopidogrel - has allergy to statins (3) Tobacco use Comment: - smoking cessation counseling - declines NRT (4) COPD (chronic obstructive pulmonary disease) Comment: - initiate tiotropium - check if insurance covers - on home O2 2L - nebs prn (5) DVT prophylaxis Comment: lovenox (6) DNR (do not resuscitate)
[2019-07-21] MEDS: Clopidogrel TAB* 75 MG PO SCH (09:14)
[2019-07-21] MEDS: Aspirin EC TAB* 81 MG TAB.EC PO SCH (09:15)
[2019-07-21] MEDS: Pantoprazole TAB * 40 MG TAB PO SCH (09:15)
[2019-07-21] MEDS: Docusate CAP* 100 MG PO SCH (10:17)
[2019-07-21] MEDS ORDERED: Morphine ORAL CONCENTRATE* 5 MG/0.25 ML ORAL.SYRIN SL ONE (11:39)
[2019-07-21] MEDS: Metoprolol Tartrate TAB* 25 MG PO SCH ×2 (12:00→20:32)
[2019-07-21] MEDS: Furosemide IV* 10 MG/ML 2 ML VIAL (20 MG) IV SCH (12:00)
[2019-07-21] MEDS: SPIRIVA Respimat* (tiotropium) 2.5 mcg/inh Inhaler INH SCH (13:22)
--- NOTE | 2019-07-21 13:45 | CONS ---
CC: Dr. Whyte; Dr. Rodriguez; Dr. Newman; Hospitalist Service CARDIOLOGY CONSULTATION: DATE OF CONSULT: 07/21/19 HISTORY OF PRESENT ILLNESS: I was asked by hospitalist service to see this 73-year- old female patie nt, who was asked by her primary doctor after she had an outpatient echo yesterday at [facility] documenting her left ventricular systolic function to be severely reduced globally with an EF less than 20%. I do have the report actually available. She did have moderate mitral insufficiency. It was described to be global hypokinesis. There was dilated left atrium severely, moderate mitral ins ufficiency, mild tricuspid insufficiency, mild pulmonary hypertension, and [id number] pleural effusion, but no pericardial effusion. Of note is her echocardiogram that was done in September 2015 docu mented her left ventricular systolic function to be EF 60% to 65% with [id number] mitral insuffici ency. The patient had history of lymphoma few years ago. She was treated with chemotherapy. She fo llowed up with Hem/Onc and she has been free according to the patient and her daughter at bedside for couple of years now. She had a history of hypertension, hyperlipidemia and was on medical treatment , but those were discontinued as the patient lost weight for the last good number of months and she d id not need to continue to be on blood pressure and cholesterol medications. There is no history of d iabetes mellitus. There is no history of myocardial infarction or coronary artery disease. There is no history of congestive heart failure. In May 2019, she was hospitalized at [facility] in [place] for ischemic colitis and she underwent mesenteric stenting according to the daughter. She had also history of peripheral arterial disease with stenting to the right carotid artery, but n o history of cardiac catheterization in the past. She had a history of long use of tobacco consumpti on and she continues to do so for good number of years, she does 1 pack per day. She does have COPD, but she does not follow up with Pulmonary. She is on inhaler treatment for COPD and emphysema. For the last number of months since May, she has been having shortness of breath and she was on outp atient diuretics according to them and yesterday because of her severe cardiomyopathy, she was instru cted to come to the hospital for further hospitalization and management. The patient is DNR, but she is open for further discussion for invasive or interventional procedure after discussion with the pa miladis and her daughter. She gives no chest pain, no nausea, no vomiting, no hematochezia, no fever, no chills, no palpitations, no tachycardia, no skin rash, no abdominal pain, no syncope is appreciate d. She feels much better compared to the last few days, especially the swelling of the lower extremi ties according to the patient and her daughter. Her review of all other systems essentially is negat sharyn. PAST MEDICAL HISTORY: Her other medical history in the past medical history includes history of hype rtension, hyperlipidemia, current tobacco consumption, COPD, and also history of ischemic colitis and mesenteric artery stenting in May 2019 at [facility] in [place]. Other medical histo ry includes also history of iron-deficiency anemia; peripheral vascular disease; and history of non-H odgkin's lymphoma, chemo was in 2015, she followed up with Dr. Wu. PAST SURGICAL HISTORY: She is status post appendicectomy, tonsillectomy, hysterectomy. She still hernandez s her ovaries in. She is status post tubal ligation. MEDICATIONS: Outpatient medications include: 1. Vitamin E 400 units twice a day. 2. Potassium 99 mg daily. 3. Omeprazole 40 mg daily. 4. Multivitamins 1 twice a day. 5. Lasix 40 mg daily. 6. Clopidogrel 75 mg daily. 7. Baby aspirin 81 mg daily. 8. Ventolin inhaler daily q.4 hours p.r.n. ALLERGIES: She is allergic to CODEINE, STATIN, IODINATED CONTRAST, SULFA, and CEPHALEXIN. FAMILY HISTORY: No family history of premature CAD. SOCIAL HISTORY: She is a current smoker, 1 pack per day for about 55 years. No significant alcohol and no history of illicit drug use. She lives by herself. REVIEW OF SYSTEMS: Her review of all other systems essentially is negative. PHYSICAL EXAM: On exam, she is at 45 degrees in bed. She is mildly tachypneic, but she had no chest pain. Her vitals included blood pressure 113/80; pulse is 88, she is in sinus rhythm; temperature 9 7.5; respiratory rate 18. Head and Neck Exam: Normocephalic, atraumatic head. Ears, Nose, and Throa t: Essentially benign. Neck is supple. JVP elevated at 45 degrees 5 cm. Chest: Diminished air en try at the bases with rhonchi bilaterally. Heart: Normal S1, S2. There is soft S3. There is a gra de 3/6 systolic murmur in the apex. Abdomen: Benign, soft. Positive bowel sounds. Extremities: P robably +1 edema. No cyanosis, no clubbing. Skin exam is normal. Psych: Normal affect and mood. FURNITURE SHAMPOOER: No focal deficits appreciated. DIAGNOSTIC STUDIES/LAB DATA: White blood cell 6, hemoglobin 10.3, hematocrit 32, platelets 284. Sod ium 134, potassium 3.8, total CO2 31, BUN 21, creatinine 0.54, magnesium 1.7, calcium 8.2. ALT 77, a lkaline phosphatase 121. Troponin 0.03, 0.04, 0.04. BNP 1204. Total protein 5.4. Triglycerides 95 , cholesterol 124, LDL 72, HDL 33. Vitamin B12 921. TSH 3.88. Her chest x-ray showed pulmonary edema. Her EKG showed normal sinus rhythm, poor R-wave progression, LVH, and ST-T changes. IMPRESSION: The patient is a 73-year-old female patient with: 1. Presentation with acute on probably subacute systolic congestive heart failure. 2. Severe global hypokinesis of the left ventricle with an ejection fraction of less than 20% by an echo done yesterday, 07/20/19. 3. Of note is her echo from September 2015 documented left ventricular systolic function to be 60% to 65 %. 4. It is not immediately clear the duration of her severe left ventricular systolic dysfunction and etiology. 5. History of systemic arterial hypertension, hyperlipidemia. 6. Ischemic colitis, status post mesenteric stent in May 2019 at [facility] in [facility]. 7. Peripheral arterial disease, status post stenting of the right carotid artery. 8. Current tobacco consumption, 1 pack per day for 55 years. 9. Chronic obstructive pulmonary disease, on medical treatment, inhalers. 10. Abnormal EKG as described. 11. Moderate mitral insufficiency, probably related to her severe cardiomyopathy. 12. The patient is DNR. PLAN: I had a very lengthy talk, discussion with the patient, her daughter, hospitalist service abou t this patient. We explained her medical condition, cardiac disease. At the present time, we are in agreement for congestive heart failure management including daily weights, I's and O's; follow up ve ry closely kidney function, potassium, magnesium, calcium; also diuretics; very low dose beta- blocke r; very low dose YOSELIN inhibitors; probably Aldactone, probably low-dose digoxin at the present time. After my lengthy talk with the patient and her daughter, although she is DNR, but they are open for f urther discussion for invasive procedures. Specifically, we talked about today cardiac catheterizati on and ICD/defibrillator. Any further recommendations will be pending her clinical outcome. I answe red all their concerns and questions up to their satisfaction. TIME SPENT: More than half of at least 60 to 65 plus minutes was in the education and counseling mod e, [id number] explaining all of the above and answering all their concerns and questions up to thei r satisfaction. [id number]/[facility] #: [id number]
[2019-07-21] MEDS: Albuterol/Ipratropium NEB.SOL* Albuterol 2.5 MG/Ipratropium 0.5 MG 3 ML INH PRN (16:37)
[2019-07-21] MEDS: Enoxaparin(*) 40 MG/0.4 ML SYR SUBCUT SCH (17:44)
[2019-07-21] MEDS: Albuterol HFA INHALER* 8 gm MDI INH PRN (20:26)
[2019-07-22] MEDS: Albuterol/Ipratropium NEB.SOL* Albuterol 2.5 MG/Ipratropium 0.5 MG 3 ML INH PRN ×4 (00:18→21:49)
[2019-07-22] MEDS: Albuterol HFA INHALER* 8 gm MDI INH PRN (04:00)
[2019-07-22 05:25] LABS: BUN/Creatinine Ratio 39.2 (8-20); Calcium 8.3 mg/dL (8.6-10.3); EGFR African American 142.3 (>60); EGFR Non-African American 117.6 (>60); Magnesium 1.8 mg/dL (1.9-2.7); Potassium 4.2 mmol/L (3.5-5.0)
[2019-07-22] MEDS: Nicotine PATCH 21 MG/24 HR* PATCH TRANSDERM PRN (05:53)
[2019-07-22] MEDS: Acetaminophen TAB* 325 MG PO PRN ×2 (05:56→20:03)
[2019-07-22] MEDS: Metoprolol Tartrate TAB* 25 MG PO SCH (07:29)
[2019-07-22] MEDS: Aspirin EC TAB* 81 MG TAB.EC PO SCH (07:29)
[2019-07-22] MEDS: Furosemide IV* 10 MG/ML 2 ML VIAL (20 MG) IV SCH (07:29)
[2019-07-22] MEDS: Clopidogrel TAB* 75 MG PO SCH (07:29)
[2019-07-22] MEDS: Pantoprazole TAB * 40 MG TAB PO SCH (07:29)
[2019-07-22] MEDS: Docusate CAP* 100 MG PO SCH (07:30)
--- NOTE | 2019-07-22 07:49 | PN ---
Subjective Date of Service: 07/22/19 Interval History: No acute events overnight. On home O2 requirements. Tolerated addition of metoprolol, will consider low-dose lisinopril if BPs improve. Pt reports significant improvement in SOB after starting Spiriva. She still has significant orthopnea. Still with LE edema but reports significant improved from when it was up to her stomach. Denies chest pain. No longer anxious. Objective Active Medications: Acetaminophen (Tylenol Tab*) 650 mg PO Q4H PRN PRN Reason: mild to moderate pain Last Admin: 07/22/19 05:56 Dose: 650 mg Albuterol (Ventolin Hfa Inhaler*) 2 puff INH Q4H PRN PRN Reason: wheezing, SOB Last Admin: 07/22/19 04:00 Dose: 2 puff Albuterol/Ipratropium (Duoneb (Albuterol 2.5 Mg/Ipratropium 0.5 Mg)) 1 neb INH RT.[id number] AWAKE PRN PRN Reason: WHEEZING Last Admin: 07/22/19 07:44 Dose: 1 neb Aspirin (Aspirin Ec Tab*) 81 mg PO DAILY [facility] Last Admin: 07/22/19 07:29 Dose: 81 mg Clopidogrel Bisulfate (Plavix Tab*) 75 mg PO QAM [facility] Last Admin: 07/22/19 07:29 Dose: 75 mg Docusate Sodium (Colace Cap*) 100 mg PO DAILY [facility] Last Admin: 07/22/19 07:30 Dose: Not Given Enoxaparin Sodium (Lovenox(*)) 40 mg SUBCUT Q24H [facility] Last Admin: 07/21/19 17:44 Dose: 40 mg Furosemide (Lasix Iv*) 40 mg IV DAILY@0600 [facility] Metoprolol Succinate (Toprol Xl Tab*) 50 mg PO BEDTIME [facility] Nicotine (Nicotine Patch 21 Mg/24 Hr*) 1 patch TRANSDERM DAILY@0800 PRN PRN Reason: CRAVINGS Last Admin: 07/22/19 05:53 Dose: 1 patch Pantoprazole Sodium (Protonix Tab*) 40 mg PO DAILY [facility] Last Admin: 07/22/19 07:29 Dose: 40 mg Polyethylene Glycol/Electrolytes (Miralax*) 17 gm PO Q3D PRN PRN Reason: CONSTIPATION Tiotropium [place] (Spiriva Respimat 2.5 Mcg) 2 puff INH DAILY [facility] Last Admin: 07/22/19 07:58 Dose: 2 puff Vital Signs - 8 hr 07/22/19 07/22/19 07/22/19 00:21 03:51 07:12 Temperature 97.1 F Pulse Rate 80 91 Respiratory 18 18 20 Rate Blood Pressure 94/63 (mmHg) O2 Sat by Pulse 94 97 Oximetry 07/22/19 07:20 Temperature 97.4 F Pulse Rate 89 Respiratory 20 Rate Blood Pressure 113/61 (mmHg) O2 Sat by Pulse 100 Oximetry Oxygen Devices in Use Now: None Appearance: frail-appearing elderly woman in NAD Eyes: No Scleral Icterus Ears/Nose/Mouth/Throat: Clear Oropharnyx, Mucous Membranes Moist Neck: NL Appearance and Movements; NL JVP, Trachea Midline Respiratory: - - wheeze resolved, CTAB Cardiovascular: RRR Abdominal: NL Sounds; No Tenderness; No Distention, No Hepatosplenomegaly Extremities: - - 1-2+ edema prison up shins Neurological: Alert and Oriented x 3 Result Diagrams: 07/20/19 15:44 07/22/19 04:29 Assess/Plan/Problems-Billing Assessment: 73W with HTN, CAD s/p stents, carotid artery stenosis, active tobacco use, COPD on home O2, PVD, lymphoma s/p chemo, MDD, presents with acute on chronic heart failure, found with newly reduced EF. - Patient Problems (1) Heart failure with reduced ejection fraction Comment: EF < 20%. New diagnosis - previously with HFpEF. - appreciate cardiology recs - cont to diurese, increase to furosemide 40mg IV daily - switch to long acting beta-patricia, metop suc 50mg nightly - can start lisinopril tomorrow depending on BP (and eventually spironolactone) - monitor BMP, replete lytes, monitor Is & Os and daily weights (2) CAD (coronary artery disease) Comment: Also with carotid disease and ischemic colitis s/p mesenteric stenting. - cont ASA, clopidogrel - has allergy to statins (3) COPD (chronic obstructive pulmonary disease) Comment: Was not on daily inhalert at home due to [facility] deductible insurance, but was on supplemental O2 - 2L. - initiate tiotropium for this admission, checking for cheapest outpatient inhaler - on home O2 2L - nebs prn (4) Tobacco use Comment: - smoking cessation counseling - declines NRT (5) DVT prophylaxis Comment: johanna (6) DNR (do not resuscitate)
[2019-07-22] MEDS: SPIRIVA Respimat* (tiotropium) 2.5 mcg/inh Inhaler INH SCH (07:58)
[2019-07-22] MEDS ORDERED: Magnesium Sulfate 1 GM IV* 1 GM/100 ML BAG IV ONE (08:00)
[2019-07-22] MEDS ORDERED: Aspirin EC TAB* 325 MG PO SCH (09:00)
[2019-07-22] MEDS ORDERED: Aspirin EC TAB* 81 MG TAB.EC PO SCH (09:00)
[2019-07-22] MEDS ORDERED: Furosemide IV* 10 MG/ML VIAL (40 MG) IV ONE (10:43)
[2019-07-22] MEDS: Enoxaparin(*) 40 MG/0.4 ML SYR SUBCUT SCH (17:15)
[2019-07-22] MEDS: Iron Sucrose* 200 MG in NS 0.9% 100 ML* 100 ML IVPB SCH (17:16)
[2019-07-22] MEDS: Metoprolol Succinate XL TAB* 50 MG PO SCH (20:03)
[2019-07-23] MEDS: Acetaminophen TAB* 325 MG PO PRN ×3 (01:27→21:30)
[2019-07-23] MEDS ORDERED: Magnesium Sulfate 2 GM IV* 2 GM/50 ML BAG IVPB ONE (03:00)
[2019-07-23] MEDS ORDERED: Furosemide IV* 10 MG/ML VIAL (40 MG) IV SCH (06:00)
[2019-07-23 06:24] LABS: BUN/Creatinine Ratio 33.3 (8-20); Calcium 8.5 mg/dL (8.6-10.3); EGFR African American 117.9 (>60); EGFR Non-African American 97.5 (>60); Magnesium 2.1 mg/dL (1.9-2.7); Potassium 4.1 mmol/L (3.5-5.0)
[2019-07-23] MEDS: Nicotine PATCH 21 MG/24 HR* PATCH TRANSDERM PRN (06:26)
[2019-07-23] MEDS: SPIRIVA Respimat* (tiotropium) 2.5 mcg/inh Inhaler INH SCH (08:44)
[2019-07-23] MEDS ORDERED: Furosemide TAB* 20 MG PO SCH (09:00)
[2019-07-23] MEDS ORDERED: Furosemide TAB* 40 MG PO SCH (09:00)
--- NOTE | 2019-07-23 09:00 | PN ---
Subjective Date of Service: 07/23/19 Interval History: No acute events overnight. Received IV furosemide this AM. Patient back on home O2 dose but with O2 sat 100%. Will change to PO diuretic tomorrow. Started on IV iron yesterday. Pending Cardiology recs. Dyspnea significantly improved here with Spiriva, but appears pt has high deductible insurance and has to pay out of pocked for all COPD inhalers. Discussed with CM/SW for help with drug coverage. Pt feels significantly better. LE edema improving, and SOB. In better spirits. Objective Active Medications: Acetaminophen (Tylenol Tab*) 650 mg PO Q4H PRN PRN Reason: mild to moderate pain Last Admin: 07/23/19 01:27 Dose: 650 mg Albuterol (Ventolin Hfa Inhaler*) 2 puff INH Q4H PRN PRN Reason: wheezing, SOB Last Admin: 07/22/19 04:00 Dose: 2 puff Albuterol/Ipratropium (Duoneb (Albuterol 2.5 Mg/Ipratropium 0.5 Mg)) 1 neb INH [id number] AWAKE PRN PRN Reason: WHEEZING Last Admin: 07/22/19 21:49 Dose: 1 neb Aspirin (Aspirin Ec Tab*) 81 mg PO DAILY [facility] Last Admin: 07/22/19 07:29 Dose: 81 mg Clopidogrel Bisulfate (Plavix Tab*) 75 mg PO QAM [facility] Last Admin: 07/22/19 07:29 Dose: 75 mg Docusate Sodium (Colace Cap*) 100 mg PO DAILY [facility] Last Admin: 07/22/19 07:30 Dose: Not Given Enoxaparin Sodium (Lovenox(*)) 40 mg SUBCUT Q24H [facility] Last Admin: 07/22/19 17:15 Dose: 40 mg Furosemide (Lasix Iv*) 40 mg IV DAILY@0600 [facility] Last Admin: 07/23/19 06:26 Dose: 40 mg Iron Sucrose 200 mg/ Sodium (Chloride) 110 mls @ 110 mls/hr IVPB DAILY [facility] Stop: 07/26/19 09:59 Last Admin: 07/22/19 17:16 Dose: 110 mls/hr Metoprolol Succinate (Toprol Xl Tab*) 50 mg PO BEDTIME [facility] Last Admin: 07/22/19 20:03 Dose: 50 mg Nicotine (Nicotine Patch 21 Mg/24 Hr*) 1 patch TRANSDERM DAILY@0800 PRN PRN Reason: CRAVINGS Last Admin: 07/23/19 06:26 Dose: 1 patch Pantoprazole Sodium (Protonix Tab*) 40 mg PO DAILY [facility] Last Admin: 07/22/19 07:29 Dose: 40 mg Polyethylene Glycol/Electrolytes (Miralax*) 17 gm PO Q3D PRN PRN Reason: CONSTIPATION Tiotropium [place] (Spiriva Respimat 2.5 Mcg) 2 puff INH DAILY [facility] Last Admin: 07/23/19 08:44 Dose: 2 puff Vital Signs - 8 hr 07/23/19 07/23/19 07/23/19 03:51 07:08 07:46 Temperature 98 F 97.4 F Pulse Rate 84 88 Respiratory 19 18 18 Rate Blood Pressure 118/67 126/66 (mmHg) O2 Sat by Pulse 100 99 Oximetry 07/23/19 08:46 Temperature Pulse Rate Respiratory 16 Rate Blood Pressure (mmHg) O2 Sat by Pulse Oximetry Oxygen Devices in Use Now: Nasal Cannula Appearance: frail appearing woman in NAD, alert and speaking in full sentences, no increased WOB, in better spirits Eyes: No Scleral Icterus Ears/Nose/Mouth/Throat: Clear Oropharnyx, Mucous Membranes Moist Neck: NL Appearance and Movements; NL JVP, Trachea Midline Respiratory: Symmetrical Chest Expansion and Respiratory Effort, - - scant expiratory wheeze, crackles improved with cough Cardiovascular: NL Sounds; No Murmurs; No JVD, RRR Abdominal: NL Sounds; No Tenderness; No Distention, No Hepatosplenomegaly Extremities: - - 1+ edema slightly greater on L Neurological: Alert and Oriented x 3 Result Diagrams: 07/20/19 15:44 07/23/19 05:23 Assess/Plan/Problems-Billing Assessment: 73W with HTN, CAD s/p stents, carotid artery stenosis, active tobacco use, COPD on home O2, PVD, lymphoma s/p chemo, MDD, presents with acute on chronic heart failure, found with newly reduced EF. - Patient Problems (1) Heart failure with reduced ejection fraction Comment: EF < 20%. New diagnosis - previously with HFpEF. - appreciate cardiology recs - changed to PO torsemide 20mg daily - cont metop suc 50mg nightly - started lisinopril 2.5mg - monitor BP closely - monitor BMP, replete lytes, monitor Is & Os and daily weights (2) CAD (coronary artery disease) Comment: Also with carotid disease and ischemic colitis s/p mesenteric stenting. - cont ASA, clopidogrel - has allergy to statins (3) COPD (chronic obstructive pulmonary disease) Comment: Was not on daily inhalert at home due to [facility] deductible insurance, but was on supplemental O2 - 2L. - initiate tiotropium for this admission, checking for cheapest outpatient inhaler - on home O2 2L - nebs prn (4) Tobacco use Comment: - smoking cessation counseling - declines NRT (5) DVT prophylaxis Comment: lovenox (6) DNR (do not resuscitate)
[2019-07-23] MEDS: Pantoprazole TAB * 40 MG TAB PO SCH (09:39)
[2019-07-23] MEDS: Clopidogrel TAB* 75 MG PO SCH (09:39)
[2019-07-23] MEDS: Docusate CAP* 100 MG PO SCH (09:39)
[2019-07-23] MEDS: Aspirin EC TAB* 81 MG TAB.EC PO SCH (09:39)
[2019-07-23] MEDS: Iron Sucrose* 200 MG in NS 0.9% 100 ML* 100 ML IVPB SCH (09:40)
--- NOTE | 2019-07-23 10:24 | PN ---
Subjective Date of Service: 07/23/19 - SHF, troponin elevation Interval History: Patient doing well. She denies chest pain, adds that SOB has improved but is not yet to her baseline. Denies dizziness or syncope. Her daughter is at her bedside Medications Active Medications: Acetaminophen (Tylenol Tab*) 650 mg PO Q4H PRN PRN Reason: mild to moderate pain Last Admin: 07/23/19 01:27 Dose: 650 mg Albuterol (Ventolin Hfa Inhaler*) 2 puff INH Q4H PRN PRN Reason: wheezing, SOB Last Admin: 07/22/19 04:00 Dose: 2 puff Albuterol/Ipratropium (Duoneb (Albuterol 2.5 Mg/Ipratropium 0.5 Mg)) 1 neb INH [id number] AWAKE PRN PRN Reason: WHEEZING Last Admin: 07/22/19 21:49 Dose: 1 neb Aspirin (Aspirin Ec Tab*) 81 mg PO DAILY [facility] Last Admin: 07/23/19 09:39 Dose: 81 mg Clopidogrel Bisulfate (Plavix Tab*) 75 mg PO QAM [facility] Last Admin: 07/23/19 09:39 Dose: 75 mg Docusate Sodium (Colace Cap*) 100 mg PO DAILY [facility] Last Admin: 07/23/19 09:39 Dose: 100 mg Enoxaparin Sodium (Lovenox(*)) 40 mg SUBCUT Q24H [facility] Last Admin: 07/22/19 17:15 Dose: 40 mg Iron Sucrose 200 mg/ Sodium (Chloride) 110 mls @ 110 mls/hr IVPB DAILY [facility] Stop: 07/26/19 09:59 Last Admin: 07/23/19 09:40 Dose: 110 mls/hr Lisinopril (Prinivil Tab*) 2.5 mg PO DAILY [facility] Metoprolol Succinate (Toprol Xl Tab*) 50 mg PO BEDTIME [facility] Last Admin: 07/22/19 20:03 Dose: 50 mg Nicotine (Nicotine Patch 21 Mg/24 Hr*) 1 patch TRANSDERM DAILY@0800 PRN PRN Reason: CRAVINGS Last Admin: 07/23/19 06:26 Dose: 1 patch Pantoprazole Sodium (Protonix Tab*) 40 mg PO DAILY [facility] Last Admin: 07/23/19 09:39 Dose: 40 mg Polyethylene Glycol/Electrolytes (Miralax*) 17 gm PO Q3D PRN PRN Reason: CONSTIPATION Tiotropium [place] (Spiriva Respimat 2.5 Mcg) 2 puff INH DAILY [facility] Last Admin: 07/23/19 08:44 Dose: 2 puff Objective Vital Signs: Temp Pulse Resp BP Pulse Ox 97.4 F 88 16 126/66 99 07/23/19 07:08 07/23/19 07:08 07/23/19 08:46 07/23/19 07:08 07/23/19 07:08 Oxygen Devices in Use Now: Nasal Cannula Appearance: sitting on edge of bed, frail, elderly but pleasant Eyes: No Scleral Icterus, PERRLA Ears/Nose/Mouth/Throat: NL Teeth, Lips, Gums Neck: - - + JVD. + harsh bilateral carotid bruits. Respiratory: - - Harsh inspiratory rales noted throughout. + expiratory wheezing noted. Cardiovascular: - - Normal S1, S2. Regular rhythm but irregular rate. + murmur under left axilla. Extremities: - - 1+ left pretibial edema, trace right pretibial edema Skin: No Rash or Ulcers Neurological: Alert and Oriented x 3 Lines/Tubes/Other Access: Clean, Dry and Intact Peripheral IV Laboratory Results: 07/20/19 15:44 07/23/19 05:23 INR (Anticoag Therapy) 1.45 (0.82-1.09) H 07/20/19 15:44 Total Bilirubin 0.20 mg/dL (0.2-1.0) 07/20/19 15:44 AST 34 U/L (13-39) 07/20/19 15:44 ALT 77 U/L (7-52) H 07/20/19 15:44 Alkaline Phosphatase 121 U/L (34-104) H 07/20/19 15:44 B-Natriuretic Peptide 1204 pg/mL (<=100) H 07/20/19 15:44 Total Protein 5.4 g/dL (6.4-8.9) L 07/20/19 15:44 Albumin 3.3 g/dL (3.2-5.2) 07/20/19 15:44 Globulin 2.1 g/dL (2-4) 07/20/19 15:44 Albumin/Globulin Ratio 1.6 (1-3) 07/20/19 15:44 Triglycerides 95 mg/dL 07/21/19 05:11 Cholesterol 124 mg/dL 07/21/19 05:11 LDL Cholesterol 72 mg/dL 07/21/19 05:11 HDL Cholesterol 33.3 mg/dL 07/21/19 05:11 TSH 3.88 mcIU/mL (0.34-5.60) 07/20/19 15:44 07/20/19 07/20/19 07/20/19 15:44 18:38 22:26 Troponin I 0.03 H* 0.04 H* 0.04 H* Laboratory Results - last 24 hr 07/23/19 05:23 Sodium 127 L Potassium 4.1 Chloride 90 L Carbon Dioxide 32 Anion Gap 5 BUN 20 Creatinine 0.60 Est GFR ( Amer) 117.9 Est GFR (Non-Af Amer) 97.5 BUN/Creatinine Ratio 33.3 H Glucose 103 H Calcium 8.5 L Magnesium 2.1 Diagnostic Imaging: outpatient echo ; per report LVEF <20%, LVIDd 4.7cm, trace AI, trace , moderate MR Patient Name: ELPIDIO MCCAIN Medical Record#: [id number] Ordering Physician: Niurka Dick MD Acct.#: [id number] : 1945 Age: 73 Sex: F Location: EMERGENCY DEPARTMENT Exam Date: 07/20/191548 ADM Status: REG ER Order Information: CHEST AP/PORT Accession Number: [id number] CPT: 30839 HISTORY: SOB COMPARISONS: July 05, 2017 VIEWS: 1: frontal AP view of the chest at 3:54 PM FINDINGS: LINES AND TUBES: None. CARDIOMEDIASTINAL SILHOUETTE: The cardiomediastinal silhouette is normal for portable technique. PLEURA: There are moderate bilateral pleural effusions. LUNG PARENCHYMA: There is a diffuse reticular pattern with indistinct pulmonary vessels. ABDOMEN: The upper abdomen is clear. There is no subphrenic gas. BONES AND SOFT TISSUES: Surgical clips are noted in the right axilla. IMPRESSION: PULMONARY INTERSTITIAL EDEMA WITH BILATERAL PLEURAL EFFUSIONS. <Electronically signed by Poncho Box MD in OV> 07/20/19 1604 Dictated By: Poncho Box MD Dictated Date/Time: 07/20/191602 Transcribed Date/Time: 07/20/191602 Copy to: CC:Thompson Whyte DO; Niurka Dick MD Imaging - [facility] - [facility] - [facility] [id number] [place] [id number] [place] [id number] ph ([phone]) ph ([phone]) ph ([phone]) This report is only to be considered final once signed by the Provider(s) as displayed in the "<Electronically Signed by >" field (s). Absence of a signature indicates the report is in a draft status and still needs to be finalized. In the event this document was created by someone other than the signing Provider, the individual initiating the document will be listed in the "Entered by:" or "Dictated by:" higgins. EKG Data: 07/20/2019; Sinus tachycardia are 109 with PACs and isolated PVC. Telemetry; Sinus rhythm with frequent PVCs, No VT. Assessment/Plan #1 Newly diagnosed SHF; LVEF <20% per outpatient echo 07/20/2019. In 2016 on MUGA her LVEF was 58%( h/o R-CHOP due to lymphoma). She presented with decompensated SHF with c/o orthopnea, edema, and SOB. Denies ever having chest pain. She is on Toprol 50mg/day, Lasix 40mg/day. Due to hyponatremia will convert Lasix to Torsemide. TSH was normal. Etiology of SHF is not clear, she has a known coronary equivalent ( VALDO stenosis with prior stent). In the past she received 5 rounds of R-CHOP and during outpatient echo she was in Afib. There was diffuse hypokinesis on out patient echo no RWMA. Will add Lisinopril 2.5mg/day. Plan is [facility] 07/24/2019. Will follow closely. Breathing ability is improving. #2 Troponin elevation; Likely due to above #1. She has a h/o right ICA stent and recent mesenteric artery stent 05/2019. She is on DAPT due to carotid disease. Denies bleeding complications. She was recently diagnosed with GABINO etiology not clear given recent ischemic bowel and h/o gastritis. Plan is LHC with Dr. Rodriguez 07/24/2019. I reviewed indication, risk and benefit of procedure with patient and her daughter. She is aware that if she needs intervention it will need to be done at an outlying facility. She is requesting [facility]. She is aware of risk that include but are not limited to bleeding, infection, vessel damage, contrast induced nephropathy, CVA, MN, and allergic reaction. She has a h/o anaphylaxis to IVP dye but adds she has done well with pre medication since then. Will RX Prednisone 40mg PO BID starting this morning , last dose 07/24/19 prior to LHC. Consent to be obtained by Dr. Rodriguez. She is on ASA 81/day in combination with Plavix. Not clear why she is not on statin therapy, would recommend high intensity statin therapy if patient is able to tolerate. #3 h/o Lymphoma followed by Dr. Wu. In the past received five round of R- CHOP. I am told she has not had a re occurrence per patient and daughter. Patient saw Dr. Wu last week. #4 Newly diagnosed PAF; Patient was in AF during outpatient echo 07/20/2019. Her Chads Vasc is >2. She denies h/o bleeding events. OAC will need to be addressed post LHC. Last dose of Lovenox 40mg SubQ ( DVT prophylaxsis dose) will be tonight in preparation of LHC. Currently she is in NSR. She denies h/o TIa/CVA. #5 Disposition pending course. Patient agreeable to proceeding with C and is aware/agreeable to rescinding DNR for 30 days post LHC. Will pre medicate for IVP dye allergy. Add Lisinopril 2.5mg/day and will convert Lasix to Torsemide due to hyponatremia. Will address antiplatlet and OAC after C 07/24/2019. Discussed case with Dr. Rodriguez who agrees with above assessment and plan. Attending: David Rodriguez
[2019-07-23] MEDS ORDERED: diPHENhydraMINE PO* 50 MG PO PRN (10:55)
[2019-07-23 13:36] LABS: Activated Partial Thrombo Time 38.4 seconds (26.0-38.0); INR 1.42 (0.82-1.09)
[2019-07-23] MEDS: Albuterol/Ipratropium NEB.SOL* Albuterol 2.5 MG/Ipratropium 0.5 MG 3 ML INH PRN (15:05)
[2019-07-23] MEDS: Enoxaparin(*) 40 MG/0.4 ML SYR SUBCUT SCH (17:21)
[2019-07-23] MEDS ORDERED: LORazepam TAB(*) 1 MG PO ONE (18:58)
[2019-07-23] MEDS: Metoprolol Succinate XL TAB* 50 MG PO SCH (20:04)
[2019-07-23] MEDS: Famotidine TAB* 20 MG PO SCH (20:05)
[2019-07-24] MEDS ORDERED: Furosemide TAB* 40 MG PO SCH (06:00)
[2019-07-24] MEDS ORDERED: NS 0.9% 1000 ML** 1,000 ML IV SCH (06:00)
[2019-07-24 06:15] LABS: BUN/Creatinine Ratio 32.7 (8-20); Calcium 8.9 mg/dL (8.6-10.3); EGFR Non-African American 123.1 (>60); Magnesium 1.7 mg/dL (1.9-2.7); Potassium 4.4 mmol/L (3.5-5.0)
[2019-07-24] MEDS ORDERED: Diazepam TAB(*) 5 MG PO PRN (07:00)
[2019-07-24] MEDS ORDERED: diPHENhydraMINE PO* 25 MG PO ONE (07:00)
[2019-07-24] MEDS ORDERED: diPHENhydraMINE PO* 50 MG PO PRN (07:00)
[2019-07-24] MEDS: SPIRIVA Respimat* (tiotropium) 2.5 mcg/inh Inhaler INH SCH ×2 (07:40→07:43)
--- NOTE | 2019-07-24 08:22 | PN ---
Subjective Date of Service: 07/24/19 Interval History: No events overnight. Pt responded well to Ativan for anxiety before cath. Tolerate procedure well and reports feeling sleepy afterwards. Without other complaints. Motivated to walk around today and go home tomorrow. Denies SOB or CP. Objective Active Medications: Acetaminophen (Tylenol Tab*) 650 mg PO Q4H PRN PRN Reason: mild to moderate pain Last Admin: 07/23/19 21:30 Dose: 650 mg Albuterol (Ventolin Hfa Inhaler*) 2 puff INH Q4H PRN PRN Reason: wheezing, SOB Last Admin: 07/22/19 04:00 Dose: 2 puff Albuterol/Ipratropium (Duoneb (Albuterol 2.5 Mg/Ipratropium 0.5 Mg)) 1 neb INH [id number] AWAKE PRN PRN Reason: WHEEZING Last Admin: 07/23/19 15:05 Dose: 1 neb Clopidogrel Bisulfate (Plavix Tab*) 75 mg PO QAM [facility] Last Admin: 07/24/19 12:10 Dose: 75 mg Docusate Sodium (Colace Cap*) 100 mg PO DAILY [facility] Last Admin: 07/24/19 12:10 Dose: 100 mg Iron Sucrose 200 mg/ Sodium (Chloride) 110 mls @ 110 mls/hr IVPB DAILY [facility] Stop: 07/26/19 09:59 Last Admin: 07/24/19 13:45 Dose: 110 mls/hr Lisinopril (Prinivil Tab*) 5 mg PO BEDTIME [facility] Metoprolol Succinate (Toprol Xl Tab*) 50 mg PO BEDTIME [facility] Last Admin: 07/23/19 20:04 Dose: 50 mg Nicotine (Nicotine Patch 21 Mg/24 Hr*) 1 patch TRANSDERM DAILY@0800 PRN PRN Reason: CRAVINGS Last Admin: 07/23/19 06:26 Dose: 1 patch Pantoprazole Sodium (Protonix Tab*) 40 mg PO DAILY [facility] Last Admin: 07/24/19 12:10 Dose: 40 mg Polyethylene Glycol/Electrolytes (Miralax*) 17 gm PO Q3D PRN PRN Reason: CONSTIPATION Rivaroxaban (Xarelto(*)) 15 mg PO DAILY [facility] Tiotropium [place] (Spiriva Respimat 2.5 Mcg) 2 puff INH DAILY [facility] Last Admin: 07/24/19 07:43 Dose: 2 puff Torsemide (Demadex*) 20 mg PO DAILY [facility] Last Admin: 07/24/19 12:10 Dose: 20 mg Vital Signs - 8 hr 07/24/19 07/24/19 07/24/19 03:23 03:30 07:40 Temperature 97.3 F Pulse Rate 92 Respiratory 18 20 Rate Blood Pressure 150/78 (mmHg) O2 Sat by Pulse 89 92 Oximetry Oxygen Devices in Use Now: Nasal Cannula Appearance: frail appearing elderly woman, pleasant, better spirits, not anxious Eyes: No Scleral Icterus Ears/Nose/Mouth/Throat: Clear Oropharnyx, Mucous Membranes Moist Neck: NL Appearance and Movements; NL JVP, Trachea Midline Respiratory: Symmetrical Chest Expansion and Respiratory Effort, Clear to Auscultation Cardiovascular: NL Sounds; No Murmurs; No JVD, RRR Abdominal: NL Sounds; No Tenderness; No Distention, No Hepatosplenomegaly Extremities: - - trace edema over ankles Result Diagrams: 07/20/19 15:44 07/24/19 05:25 Assess/Plan/Problems-Billing Assessment: 73W with HTN, CAD s/p stents, carotid artery stenosis, active tobacco use, COPD on home O2, PVD, lymphoma s/p chemo, MDD, presents with acute on chronic heart failure, found with newly reduced EF. - Patient Problems (1) Heart failure with reduced ejection fraction Comment: EF < 20%. New diagnosis - previously with HFpEF. Cath without significant obstruction to explain cardiomyopathy. Possibly from h/o tachyarrythmia vs chemo. - cont torsemide PO 20mg daily - cont metop suc 50mg nightly, lisinopril 5mg nightly - monitor BMP, replete lytes, monitor Is & Os and daily weights (2) CAD (coronary artery disease) Comment: Also with carotid disease and ischemic colitis s/p mesenteric stenting. - cont clopidogrel, stop aspirin as pt will be started on AC tomorrow - has allergy to statins (3) COPD (chronic obstructive pulmonary disease) Comment: Was not on daily inhaler at home due to high deductible insurance, but was on supplemental O2 2L. - cont Spiriva, SW gave info about free med program - nebs prn (4) Tobacco use Comment: - smoking cessation counseling - cont NRT - patch; pt more motivated (5) Atrial fibrillation Comment: - cont metoprolol - start Xarelto 24 hours after cardiac cath (6) DVT prophylaxis Comment: johanna (7) DNR (do not resuscitate)
[2019-07-24] MEDS ORDERED: Magnesium Sulfate 2 GM IV* 2 GM/50 ML BAG IVPB ONE (08:26)
[2019-07-24] MEDS ORDERED: fentaNYL* 50 MCG/ML 2 ML VIAL (100 MCG VIAL) ONE (08:41)
[2019-07-24] MEDS ORDERED: Midazolam* 1 MG/ML 5 ML VIAL (5 MG) ONE (08:41)
[2019-07-24] MEDS ORDERED: Heparin 2 UNITS/ML IVPREMIX* 3,000 ML IV ONE (08:41)
[2019-07-24] MEDS ORDERED: Lidocaine 1% INJ* 10 MG/ML 30 ML SDV ONE (08:41)
[2019-07-24] MEDS ORDERED: Iohexol 350 (CONTRAST) 200 ML MDV IV ONE (08:42)
[2019-07-24] MEDS ORDERED: Lisinopril TAB* 5 MG PO SCH ×2 (09:00→21:00)
[2019-07-24] MEDS: Pantoprazole TAB * 40 MG TAB PO SCH (12:10)
[2019-07-24] MEDS: Torsemide TAB* 20 MG PO SCH (12:10)
[2019-07-24] MEDS: Clopidogrel TAB* 75 MG PO SCH (12:10)
[2019-07-24] MEDS: Docusate CAP* 100 MG PO SCH (12:10)
[2019-07-24] MEDS: Famotidine TAB* 20 MG PO SCH (12:11)
[2019-07-24] MEDS: Aspirin EC TAB* 81 MG TAB.EC PO SCH (12:12)
[2019-07-24] MEDS: Iron Sucrose* 200 MG in NS 0.9% 100 ML* 100 ML IVPB SCH (13:45)
--- NOTE | 2019-07-24 15:36 | CATH ---
"*[facility]* [place] [address] Main: [phone] [email or web address] Cardiac Catheterization Patient: Pat Smith : 1945 Study Date: 07/24/2019 Age: 73 Gender: F HR: Height: 69 in /175.3 cm BSA: 1.65 m^2 Weight: 124.1 lb /56.4 kg BMI: 18.4 kg/m^2 Aircraft Systems Technician: David Rodriguez MD Ordering Physician: Elisa Spencer Referring Physician: Elisa Spencer Thuman Ashlin, --- - Left coronary angiography. - Right coronary angiography. Summary: 1. LAD: Mid-vessel lesion: There is a 50% stenosis. 2. 1st obtuse marginal: Proximal vessel lesion: There is a 50% stenosis. 3. Right coronary: Ostial lesion: There is a 50% stenosis. 4. RV marginal 2: Lesion: There is a 50% stenosis. 5. Evaluation of severe cardiomyopathy with non critical CAD. Recommendations: Continue medical therapy for cardiomyopathy. History: Cerebrovascular disease. PMH: Peripheral arterial disease. Chronic lung disease. Risk factors: Current tobacco use. Hypertension. Dyslipidemia. Family history is significant for coronary artery disease. Medications: The patient received no antianginal therapy in the last two weeks. Labs, prior tests, procedures, and surgery: Blood tests: International normalized ratio (INR) of 1.42. Partial thromboplastin time (PTT) of 38.4 sec. Serum potassium (K) of 4.4 mEq/l. Serum sodium (Na) of 126 mEq/l. Serum creatinine (current admission) of 0.49 mg/dl. Blood urea nitrogen of 16 mg/dl. Glucose of 127 mg/dl. Platelet count of 284 th/ul. White blood cell count (WBC) of 0.01 th/ul. Red blood cell count (RBC) of 3450 th/ul. Hematocrit of 32 %. Hemoglobin (pre-procedure) of 10.3 g/dl. Study data: Study status: Cardiac cath: urgent. Location: Catheterization laboratory. Consent: The risks, benefits, and alternatives to the procedure were explained to the patient and/or their healthcare health and safety representative and written informed consent was obtained. All available pre-procedure labs were reviewed. Height: 175.3 cm. 69 in. Weight: 56.4 kg. 124.1 lb. Body surface area: 1.65 m^2. Body mass index: 18.4 kg/m^2. Procedure: 1. Initial setup. The patient was brought to the laboratory. Surface ECG leads, blood pressure measurements, and pulse oximetric signals were monitored. A baseline seven lead ECG was recorded. A time out was observed per protocol. 2. Skin preparation. The planned puncture sites were prepped and draped in the usual sterile manner. 3. Local anesthesia. 1% lidocaine was administered. 4. Sedation. was administered. 5. Local anesthesia. 1% lidocaine (10 ml) was administered. 6. Right femoral artery access. A 6.5F Merit Prelude sheath was advanced into the vessel. 7. Selective left coronary angiography. A 6F JL 4 catheter was advanced into the left coronary vessel ostium under fluoroscopic guidance. Contrast was injected. Images were obtained in multiple projections. 8. Selective right coronary angiography. A 6F JR 4 catheter was advanced into the right coronary vessel ostium under fluoroscopic guidance. Contrast was injected. Images were obtained in multiple projections. 9. Supplemental oxygen. Oxygen, 3 L/min was administered throughout the procedure. Study completion: Minimal estimated blood loss. All catheters inserted during the procedure were removed. There were no apparent complications. Administered medications: VERSED (Midazolam), 1mg, IV. Fentanyl, for a total dose of 50mcg, IV. Contrast: Omnipaque 350 45 ml (total dose). Omnipaque 350 155 ml (wasted). Radiation: Fluoroscopy dose: 70.3 cGy. Discharge: The patient tolerated the procedure well and was discharged from the lab in stable condition. Findings Coronary arteries: The coronary circulation is right dominant. Left main: Normal, 0% stenosis. LAD: Mildly calcified. Mid-vessel lesion: There is a 50% stenosis. Left circumflex: 1st obtuse marginal: Proximal vessel lesion: There is a 50% stenosis. Right coronary: Moderately calcified. Ostial lesion: There is a 50% stenosis. RV marginal 2: Lesion: There is a 50% stenosis. Hemodynamics: + + + |Stage description |Condition 1 -| + + + |Arterial pressure s/d (m)|124/56 (84) | + + + Prepared and electronically signed by David Rodriguez MD 07/24/2019 15:35"
[2019-07-24] MEDS: Albuterol/Ipratropium NEB.SOL* Albuterol 2.5 MG/Ipratropium 0.5 MG 3 ML INH PRN (20:09)
[2019-07-24] MEDS: Nicotine PATCH 21 MG/24 HR* PATCH TRANSDERM PRN (20:58)
[2019-07-24] MEDS: Metoprolol Succinate XL TAB* 50 MG PO SCH (20:59)
[2019-07-24] MEDS: Acetaminophen TAB* 325 MG PO PRN (20:59)
[2019-07-25] MEDS: Acetaminophen TAB* 325 MG PO PRN (00:37)
[2019-07-25] MEDS: Albuterol/Ipratropium NEB.SOL* Albuterol 2.5 MG/Ipratropium 0.5 MG 3 ML INH PRN (03:38)
[2019-07-25 06:09] LABS: BUN/Creatinine Ratio 32.4 (8-20); Calcium 8.6 mg/dL (8.6-10.3); EGFR African American 102.1 (>60); EGFR Non-African American 84.4 (>60); Magnesium 1.7 mg/dL (1.9-2.7); Potassium 3.6 mmol/L (3.5-5.0)
[2019-07-25] MEDS: SPIRIVA Respimat* (tiotropium) 2.5 mcg/inh Inhaler INH SCH (07:49)
[2019-07-25] MEDS ORDERED: Potassium Chlor TAB* 20 MEQ TAB.ER PO ONE (08:13)
[2019-07-25] MEDS ORDERED: Magnesium Sulfate IV* 3 GM in NS 0.9% 100 ML* 100 ML IVPB ONE (08:13)
--- NOTE | 2019-07-25 08:16 | PN ---
<Elisa Spencer - Last Filed: 07/25/19 09:00> Subjective Date of Service: 07/25/19 - decompensated SHF, troponin elevation Interval History: Patient doing well. She denies chest pain, adds that SOB has essentially resolved. Denies complaints of right groin access pain, dizziness, palpitations. Patient has been up and ambulating. Medications Active Medications: Acetaminophen (Tylenol Tab*) 650 mg PO Q4H PRN PRN Reason: mild to moderate pain Last Admin: 07/25/19 00:37 Dose: 650 mg Albuterol (Ventolin Hfa Inhaler*) 2 puff INH Q4H PRN PRN Reason: wheezing, SOB Last Admin: 07/22/19 04:00 Dose: 2 puff Albuterol/Ipratropium (Duoneb (Albuterol 2.5 Mg/Ipratropium 0.5 Mg)) 1 neb INH RT.[id number] AWAKE PRN PRN Reason: WHEEZING Last Admin: 07/25/19 03:38 Dose: 1 neb Clopidogrel Bisulfate (Plavix Tab*) 75 mg PO QAM [facility] Last Admin: 07/24/19 12:10 Dose: 75 mg Docusate Sodium (Colace Cap*) 100 mg PO DAILY [facility] Last Admin: 07/24/19 12:10 Dose: 100 mg Iron Sucrose 200 mg/ Sodium (Chloride) 110 mls @ 110 mls/hr IVPB DAILY [facility] Stop: 07/26/19 09:59 Last Admin: 07/24/19 13:45 Dose: 110 mls/hr Magnesium Sulfate 3 gm/ Sodium (Chloride) 106 mls @ 53 mls/hr IVPB ONCE ONE Stop: 07/25/19 10:12 Lisinopril (Prinivil Tab*) 5 mg PO BEDTIME [facility] Last Admin: 07/24/19 20:59 Dose: 5 mg Metoprolol Succinate (Toprol Xl Tab*) 50 mg PO BEDTIME [facility] Last Admin: 07/24/19 20:59 Dose: 50 mg Nicotine (Nicotine Patch 21 Mg/24 Hr*) 1 patch TRANSDERM DAILY@0800 PRN PRN Reason: CRAVINGS Last Admin: 07/24/19 20:58 Dose: 1 patch Pantoprazole Sodium (Protonix Tab*) 40 mg PO DAILY [facility] Last Admin: 07/24/19 12:10 Dose: 40 mg Polyethylene Glycol/Electrolytes (Miralax*) 17 gm PO Q3D PRN PRN Reason: CONSTIPATION Rivaroxaban (Xarelto(*)) 15 mg PO DAILY [facility] Tiotropium Krum (Spiriva Respimat 2.5 Mcg) 2 puff INH DAILY [facility] Last Admin: 07/25/19 07:49 Dose: 2 puff Torsemide (Demadex*) 20 mg PO DAILY [facility] Last Admin: 07/24/19 12:10 Dose: 20 mg Objective Vital Signs: Temp Pulse Resp BP Pulse Ox 97.5 F 75 18 106/50 96 07/25/19 03:31 07/25/19 07:50 07/25/19 07:50 07/25/19 03:15 07/25/19 07:50 Oxygen Devices in Use Now: Nasal Cannula Appearance: sitting on edge of bed, frail, elderly but pleasant Eyes: No Scleral Icterus, PERRLA Ears/Nose/Mouth/Throat: NL Teeth, Lips, Gums Neck: - - + harsh bilateral carotid bruits. Respiratory: - - Wheezes noted throughout. Respirations are labored but no retractions. breathing effort per patient is back to baseline. Cardiovascular: - - Normal S1, S2. Regular rhythm but irregular rate. + murmur under left axilla. Extremities: - - trace bilateral pretibial edema. right femoral access examined. no thrill, no hematoma. 2+ right femoral, 3+ right DP pulse palpated. right femoral access if non tender to palpation Skin: No Rash or Ulcers Neurological: Alert and Oriented x 3 Lines/Tubes/Other Access: Clean, Dry and Intact Peripheral IV Laboratory Results: 07/20/19 15:44 07/25/19 05:32 INR (Anticoag Therapy) 1.42 (0.82-1.09) H 07/23/19 13:15 APTT 38.4 seconds (26.0-38.0) H 07/23/19 13:15 Total Bilirubin 0.20 mg/dL (0.2-1.0) 07/20/19 15:44 AST 34 U/L (13-39) 07/20/19 15:44 ALT 77 U/L (7-52) H 07/20/19 15:44 Alkaline Phosphatase 121 U/L (34-104) H 07/20/19 15:44 B-Natriuretic Peptide 1204 pg/mL (<=100) H 07/20/19 15:44 Total Protein 5.4 g/dL (6.4-8.9) L 07/20/19 15:44 Albumin 3.3 g/dL (3.2-5.2) 07/20/19 15:44 Globulin 2.1 g/dL (2-4) 07/20/19 15:44 Albumin/Globulin Ratio 1.6 (1-3) 07/20/19 15:44 Triglycerides 95 mg/dL 07/21/19 05:11 Cholesterol 124 mg/dL 07/21/19 05:11 LDL Cholesterol 72 mg/dL 07/21/19 05:11 HDL Cholesterol 33.3 mg/dL 07/21/19 05:11 TSH 3.88 mcIU/mL (0.34-5.60) 07/20/19 15:44 07/20/19 07/20/19 07/20/19 15:44 18:38 22:26 Troponin I 0.03 H* 0.04 H* 0.04 H* Laboratory Results - last 24 hr 07/24/19 07/25/19 05:25 05:32 Sodium 129 L Potassium 3.6 Chloride 91 L Carbon Dioxide 31 Anion Gap 7 BUN 22 Creatinine 0.68 Est GFR ( Amer) 102.1 Est GFR (Non-Af Amer) 84.4 BUN/Creatinine Ratio 32.4 H Glucose 94 Calcium 8.6 Magnesium 1.7 L Blood Type A Positive Antibody Screen Negative Diagnostic Imaging: outpatient echo ; per report LVEF <20%, LVIDd 4.7cm, trace AI, trace , moderate MR Patient Name: ELPIDIO SMITH Medical Record#: [id number] Ordering Physician: Niurka Dick MD Acct.#: [id number] : 1945 Age: 73 Sex: F Location: EMERGENCY DEPARTMENT Exam Date: 07/20/191548 ADM Status: REG ER Order Information: CHEST AP/PORT Accession Number: [id number] CPT: 65907 HISTORY: SOB COMPARISONS: July 05, 2017 VIEWS: 1: frontal AP view of the chest at 3:54 PM FINDINGS: LINES AND TUBES: None. CARDIOMEDIASTINAL SILHOUETTE: The cardiomediastinal silhouette is normal for portable technique. PLEURA: There are moderate bilateral pleural effusions. LUNG PARENCHYMA: There is a diffuse reticular pattern with indistinct pulmonary vessels. ABDOMEN: The upper abdomen is clear. There is no subphrenic gas. BONES AND SOFT TISSUES: Surgical clips are noted in the right axilla. IMPRESSION: PULMONARY INTERSTITIAL EDEMA WITH BILATERAL PLEURAL EFFUSIONS. <Electronically signed by Poncho Box MD in OV> 07/20/19 160 Dictated By: Poncho Box MD Dictated Date/Time: 07/20/191602 Transcribed Date/Time: 07/20/191602 Copy to: CC:Thompson Whyte DO; Niurka Dick MD Imaging - [facility] Imaging - [facility] Imaging - [place] [facility] [address] [address] ph ([phone]) ph ([phone]) ph ([phone]) This report is only to be considered final once signed by the Provider(s) as displayed in the "<Electronically Signed by >" field (s). Absence of a signature indicates the report is in a draft status and still needs to be finalized. In the event this document was created by someone other than the signing Provider, the individual initiating the document will be listed in the "Entered by:" or "Dictated by:" higgins. 1 of 1 To view the full procedure details, close this document and click on the camera icon from the Reports list. *[facility]* [place] [address] Main: [phone] [email or web address] Cardiac Catheterization Patient: Elpidio Smith : 1945 Study Date: 07/24/2019 Age: 73 Gender: F HR: Height: 69 in /175.3 cm BSA: 1.65 m^2 Weight: 124.1 lb /56.4 kg BMI: 18.4 kg/m^2 Digital Photographic Printer: David Rodriguez MD Ordering Physician: Elisa Spencer Referring Physician: Elisa Spencer Thuman Ashlin, --- - Left coronary angiography. - Right coronary angiography. Summary: 1. LAD: Mid-vessel lesion: There is a 50% stenosis. 2. 1st obtuse marginal: Proximal vessel lesion: There is a 50% stenosis. 3. Right coronary: Ostial lesion: There is a 50% stenosis. 4. RV marginal 2: Lesion: There is a 50% stenosis. 5. Evaluation of severe cardiomyopathy with non critical CAD. Recommendations: Continue medical therapy for cardiomyopathy. History: Cerebrovascular disease. PMH: Peripheral arterial disease. Chronic lung disease. Risk factors: Current tobacco use. Hypertension. Dyslipidemia. Family history is significant for coronary artery disease. Medications: The patient received no This report is only to be considered final once signed by the Provider(s) as displayed in the "<Electronically Signed by >" field (s). Absence of a signature indicates the report is in a draft status and still needs to be finalized. In the event this document was created by someone other than the signing Provider, the individual initiating the document will be listed in the "Entered by:" or "Dictated by:" higgins. EKG Data: 07/20/2019; Sinus tachycardia are 109 with PACs and isolated PVC. Telemetry; Sinus rhythm with frequent occasional PVCs and frequent PACs., No VT. Assessment/Plan #1 Newly diagnosed SHF; LVEF <20% per outpatient echo 07/20/2019. In 2016 on MUGA her LVEF was 58%( h/o R-CHOP due to lymphoma). She presented with decompensated SHF with c/o orthopnea, edema, and SOB. She has responded well to diuresis. Lasix was converted to torsemide and Na+ has improved slowly since medication change. [facility] 07/24/2019 did not reveal obstructive CAD. Etiology of SHF is not clear could be tachy mediated given newly diagnosed PAF versus related to R-Chop. She is compensated on exam. Will continue toprol 50mg/day, Lisinopril 2.5mg/day, Torsemide 20/day. I reviewed indication of lifevest with the patient she is aware of VT/VF with risk of sudden cardiac due to severe LV dysfunction. She declined lifevest at this time. She is to have an outpatient CMP 07/30/19 for re evaluation of Na+ and K+. She is to follow up with Dr. Rodriguez 07/31/19. Denies ever having chest pain. She is on Toprol 50mg/day , Lasix 40mg/day. Due to hyponatremia will convert Lasix to Torsemide. TSH was normal. Recommend daily weights, keep Na+ < 2 grams. #2 Troponin elevation; Likely due to above #1. She has a h/o right ICA stent and recent mesenteric artery stent 05/2019. She is s/p [facility] 07/24/2019 thre was no obstructive CAD noted. We discontinued Aspirin 81/day. Continued Plavix 75mg/ day and started her on Xarelto 15mg PO daily with evening meal. Right femoral access site was examined. No thrill, hematoma. pulses intact. #3 h/o Lymphoma followed by Dr. Wu. In the past received five round of R- CHOP. I am told she has not had a re occurrence per patient and daughter. Patient saw Dr. Wu last week. #4 Newly diagnosed PAF; Patient was in AF during outpatient echo 07/20/2019. Her Chads Vasc is >2. She denies h/o bleeding events. currently in NSR with frequent PACs. Now on Xarelto 15mg/day. #5 Disposition pending course.will sign off case. Discussed with Dr. Rubio. Patient declined lifevest. f/u 07/31/[address] Rodriguez. outpatient labs 2019. Attending: Fidencio Rbuio <Fidencio Rubio - Last Filed: 07/25/19 10:17> Medications Active Medications: Acetaminophen (Tylenol Tab*) 650 mg PO Q4H PRN PRN Reason: mild to moderate pain Last Admin: 07/25/19 00:37 Dose: 650 mg Albuterol (Ventolin Hfa Inhaler*) 2 puff INH Q4H PRN PRN Reason: wheezing, SOB Last Admin: 07/22/19 04:00 Dose: 2 puff Albuterol/Ipratropium (Duoneb (Albuterol 2.5 Mg/Ipratropium 0.5 Mg)) 1 neb INH [id number] AWAKE PRN PRN Reason: WHEEZING Last Admin: 07/25/19 03:38 Dose: 1 neb Clopidogrel Bisulfate (Plavix Tab*) 75 mg PO QAM [facility] Last Admin: 07/25/19 08:58 Dose: 75 mg Docusate Sodium (Colace Cap*) 100 mg PO DAILY [facility] Last Admin: 07/25/19 08:58 Dose: 100 mg Iron Sucrose 200 mg/ Sodium (Chloride) 110 mls @ 110 mls/hr IVPB DAILY [facility] Stop: 07/26/19 09:59 Last Admin: 07/24/19 13:45 Dose: 110 mls/hr Lisinopril (Prinivil Tab*) 5 mg PO BEDTIME [facility] Last Admin: 07/24/19 20:59 Dose: 5 mg Metoprolol Succinate (Toprol Xl Tab*) 50 mg PO BEDTIME [facility] Last Admin: 07/24/19 20:59 Dose: 50 mg Nicotine (Nicotine Patch 21 Mg/24 Hr*) 1 patch TRANSDERM DAILY@0800 PRN PRN Reason: CRAVINGS Last Admin: 07/24/19 20:58 Dose: 1 patch Pantoprazole Sodium (Protonix Tab*) 40 mg PO DAILY [facility] Last Admin: 07/25/19 08:58 Dose: 40 mg Polyethylene Glycol/Electrolytes (Miralax*) 17 gm PO Q3D PRN PRN Reason: CONSTIPATION Rivaroxaban (Xarelto(*)) 15 mg PO DAILY [facility] Last Admin: 07/25/19 08:58 Dose: 15 mg Tiotropium Krum (Spiriva Respimat 2.5 Mcg) 2 puff INH DAILY [facility] Last Admin: 07/25/19 07:49 Dose: 2 puff Torsemide (Demadex*) 20 mg PO DAILY [facility] Last Admin: 07/25/19 09:10 Dose: Not Given Objective Vital Signs: Temp Pulse Resp BP Pulse Ox 96.5 F 75 20 78/58 96 07/25/19 07:36 07/25/19 07:50 07/25/19 08:00 07/25/19 07:36 07/25/19 07:50 Laboratory Results: 07/20/19 15:44 07/25/19 05:32 INR (Anticoag Therapy) 1.42 (0.82-1.09) H 07/23/19 13:15 APTT 38.4 seconds (26.0-38.0) H 07/23/19 13:15 Total Bilirubin 0.20 mg/dL (0.2-1.0) 07/20/19 15:44 AST 34 U/L (13-39) 07/20/19 15:44 ALT 77 U/L (7-52) H 07/20/19 15:44 Alkaline Phosphatase 121 U/L (34-104) H 07/20/19 15:44 B-Natriuretic Peptide 1204 pg/mL (<=100) H 07/20/19 15:44 Total Protein 5.4 g/dL (6.4-8.9) L 07/20/19 15:44 Albumin 3.3 g/dL (3.2-5.2) 07/20/19 15:44 Globulin 2.1 g/dL (2-4) 07/20/19 15:44 Albumin/Globulin Ratio 1.6 (1-3) 07/20/19 15:44 Triglycerides 95 mg/dL 07/21/19 05:11 Cholesterol 124 mg/dL 07/21/19 05:11 LDL Cholesterol 72 mg/dL 07/21/19 05:11 HDL Cholesterol 33.3 mg/dL 07/21/19 05:11 TSH 3.88 mcIU/mL (0.34-5.60) 07/20/19 15:44 07/20/19 07/20/19 07/20/19 15:44 18:38 22:26 Troponin I 0.03 H* 0.04 H* 0.04 H* Assessment/Plan [facility] 07.25.1904/26 am Points of Discussion: Chart reviewed, patient examined, reviewed with patient and daughter at bedside. Seems improved but understands need for close followup and monitoring and medication adjustment. Given her asymptomatic afib rvr,and possible tachycardia induced cardiomyopathy , I suggested 1. checking hr and bp daily and 2. consider obtaining Skuid tami to evaluate rate and rhythm periodically to monitor for recurrence of afib and evaluate rate control. Consider event monitor as outpatient to confirm control of afib. She will followup with Dr. Rodriguez as outpatient.
[2019-07-25] MEDS: Clopidogrel TAB* 75 MG PO SCH (08:58)
[2019-07-25] MEDS: Docusate CAP* 100 MG PO SCH (08:58)
[2019-07-25] MEDS: Pantoprazole TAB * 40 MG TAB PO SCH (08:58)
[2019-07-25] MEDS ORDERED: Lisinopril TAB* 5 MG PO SCH ×2 (09:00→21:00)
[2019-07-25] MEDS ORDERED: Rivaroxaban TAB(*) 15 MG PO SCH (09:00)
[2019-07-25] MEDS: Torsemide TAB* 20 MG PO SCH (09:10)
[2019-07-25] MEDS: Iron Sucrose* 200 MG in NS 0.9% 100 ML* 100 ML IVPB SCH (11:59)
[2019-07-25 12:29] VITALS: BP 95/49
--- NOTE | 2019-07-25 22:26 | DS ---
CC: Thompson Whyte DO * DISCHARGE SUMMARY: DATE OF ADMISSION: 07/20/19 DATE OF DISCHARGE: 07/25/19 PRIMARY CARE PROVIDER: Thompson Whyte DO PRIMARY DIAGNOSES: 1. Heart failure with reduced ejection fraction. 2. Chronic obstructive pulmonary disease with active tobacco use. 3. Iron deficiency anemia. SECONDARY DIAGNOSES: 1. Hypertension. 2. Coronary artery disease with stents. 3. Carotid artery stenosis. 4. Peripheral vascular disease. 5. Lymphoma, status post chemo. 6. Major depressive disorder. CONSULTS: Dr. Newman, Dr. Rodriguez, and Dr. Rubio of Cardiology. PROCEDURES: Cardiac catheterization on 07/24/19. DISCHARGE MEDICATIONS: 1. Clopidogrel 75 mg daily. 2. Xarelto 15 mg daily. 3. Lisinopril 2.5 mg at bedtime. 4. Metoprolol succinate 50 mg daily. 5. Tiotropium 1 capsule inhaled daily. 6. Nicotine patch 21 mg every 24 hours daily. 7. Albuterol and DuoNeb every 4 to 6 hours as needed for shortness of breath. 8. Torsemide 20 mg daily. 9. Multivitamin 1 capsule twice a day. 10. Docusate 100 mg daily. 11. Vitamin E 400 mg twice a day. 12. MiraLAX 17 g daily as needed for constipation. 13. Ondansetron 8 mg every 8 hours as needed for nausea. HISTORY OF PRESENT ILLNESS: Ms. Smith is a 73-year-old woman with COPD on home O2 and active tobacco use, coronary artery disease with stents, carotid artery stenosis, peripheral vascular disease and history of non-Hodgkin's lymphoma, status post chemo in 2015, who is presenting as a referral from her primary care provider for abnormal echo findings. The patient states that Dr. Rodriguez called Dr. Whyte who then called the patient who recommended she come to [facility] for new ejection fraction of less than 20%. At that time, she was noted to have a heart rate of 144 and atrial fibrillation. The patient states she has been in and out of the hospital since May and this will be her 7th admission since that time with a range of diagnosis including bronchitis , COPD exacerbation, pneumonia and heart failure exacerbation. She states that she has not felt completely well over the last 2 months and that her symptoms have more steeply worsened over this last week. She has an increase in cough which is occasionally productive, but denies fevers, chills. She has had an increase in dyspnea and has recently increased her baseline home O2 from 2 L to 3. She has dyspnea on exertion, paroxysmal nocturnal dyspnea and worsening bilateral lower extremity edema, which has now progressed to including swelling of her lower abdomen. She denies recent changes in diet or recent illnesses before May. In the hospital, the patient had labs revealing of normocytic anemia with troponin elevated to 0.03. EKG showed heart rate in [address]. Chest x-ray showed pulmonary edema with bilateral pleural effusions. She was asked to be admitted to the hospitalist service for further care. Cardiology was consulted who recommended to continue diuresing and to start on a heart failure regimen. Of note, the patient had not been on home inhalers for her COPD that is oxygen dependent because she has a high deductible insurance co-pay and was unable to afford the prescribed inhalers; however, she was started on an inhaler here and reported feeling significantly better. After initiation of inhalers and continued diuresis, she was able to intermittently be titrated off her home O2, but did occasionally need it. One day prior to discharge, the patient had undergone a cardiac catheterization with Dr. David Rodriguez, which was revealing of noncritical nonobstructive coronary artery disease with an LAD mid vessel lesion with 50% stenosis, one obtuse marginal vessel lesion with 50% stenosis, right coronary ostial lesion with 50% stenosis and RV marginal 2 lesion with 50% stenosis. It was recommended that she continue to have medical therapy for heart failure with reduced ejection fraction. Her blood pressure decreased significantly on lisinopril 5, but she was able to tolerate lisinopril 2.5 without symptoms of lightheadedness. She was frequently encouraged to consider smoking cessation given her significant coronary artery disease and advanced COPD. Also throughout her admission, she was given IV iron for iron deficiency anemia, which also helped significantly improve the patient's symptoms. She received a total of 4 doses through the IV. On day of discharge, the patient reported feeling significantly stronger. She was able to walk around the unit without experiencing lightheadedness. She denied shortness of breath and reported significant improvement in her lower extremity swelling. Otherwise, a 10-point review of systems was negative. PHYSICAL EXAMINATION: Afebrile, blood pressure 95/49, heart rate 78, SaO2 of 100% on 2 L. In general, she is a frail appearing elderly woman in no acute distress. He is alert, interactive, very pleasant. No increased work of breathing. Speaking in full sentences. HEENT: With moist mucous membranes. OP clear. Neck: No JVD. Bilateral carotid bruits. Lungs: Clear to auscultation bilaterally without wheezes or crackles. Heart: Regular rate and rhythm without murmurs, gallops, or rubs. Abdomen: Soft, nontender, nondistended. Extremities: With trace edema over ankles. Neuro: A and O x3. No focal deficits. PERTINENT STUDIES AND LABS: CBC notable for hemoglobin 10.3 which is the patient's baseline with MCV 92. BMP significant for mild hyponatremia to 129 with creatinine 0.68. Troponin peak at 0.04. LDL 72, HDL 33, triglycerides 95. Iron less than 20, TIBC 406, percent saturation 5, ferritin 39. Chest x-ray with pulmonary interstitial edema with bilateral pleural effusions. DISCHARGE PLAN: The patient will be discharged home to follow up with her primary care physician, Dr. Whyte as well as Dr. David Rodriguez of Cardiology for her new diagnosis of heart failure with reduced ejection fraction. She was prescribed metoprolol 50 mg daily, lisinopril 2.5 mg daily, and torsemide 20 mg daily. As an outpatient, she will likely have spironolactone added if her blood pressures permit. For her history of coronary artery disease and COPD, she was strongly encouraged to consider smoking cessation. She was prescribed a nicotine patch and encouraged to continue to follow up with her primary care physician. She was also started on a Spiriva inhaler and our social director helps that her up with a Spiriva Savings Program that will help her for this much needed medication. For her AFib seen during echocardiogram study with Dr. Rodriguez, the patient was started on rivaroxaban and because of this and the need for her to continue with Plavix, her home aspirin was discontinued. She should eat a healthy diet, low in processed foods and resume activity as tolerated. Her and her daughter were educated on return precautions which include but are not limited to new evidence of bleeding or new symptoms of fever , chills or recurrence in her shortness of breath and lower extremity edema. DISPOSITION: Home. CONDITION: Improved. TIME SPENT: Approximately 60 minutes was spent on discharge of this patient, more than half of which was spent with care coordination at bedside for interview and exam. [id number]/CPS #: [id number] LAW
== END 2019-07-25 13:37 | disposition home or self-care (01) | DRG 286 ==
LOC: ED 15:00 → MEDTELE 17:49
PROVIDERS: ADMIT Internal Medicine; ATTEND Internal Medicine
PROC: B211YZZ Fluoroscopy of Multiple Coronary Arteries using Other Contrast (ICD-10-PCS; 2019-07-24)
PROC: B215YZZ Fluoroscopy of Left Heart using Other Contrast (ICD-10-PCS; 2019-07-24)
PROC: 4A023N7 Measurement of Cardiac Sampling and Pressure, Left Heart, Percutaneous Approach (ICD-10-PCS; principal; 2019-07-24 09:00)
DX: I11.0 Hypertensive heart disease with heart failure (principal); I50.21 Acute systolic (congestive) heart failure; E87.1 Hypo-osmolality and hyponatremia; E46 Unspecified protein-calorie malnutrition; I48.0 Paroxysmal atrial fibrillation; I73.9 Peripheral vascular disease, unspecified; I42.9 Cardiomyopathy, unspecified; J44.9 Chronic obstructive pulmonary disease, unspecified; E83.42 Hypomagnesemia; Z66 Do not resuscitate; E78.5 Hyperlipidemia, unspecified; K21.9 Gastro-esophageal reflux disease without esophagitis; I25.10 Atherosclerotic heart disease of native coronary artery without angina pectoris; I27.20 Pulmonary hypertension, unspecified; F17.210 Nicotine dependence, cigarettes, uncomplicated; D50.9 Iron deficiency anemia, unspecified; R74.8 Abnormal levels of other serum enzymes; I65.29 Occlusion and stenosis of unspecified carotid artery; I08.1 Rheumatic disorders of both mitral and tricuspid valves; F32.9 Major depressive disorder, single episode, unspecified; Z95.5 Presence of coronary angioplasty implant and graft; Z99.81 Dependence on supplemental oxygen; Z85.72 Personal history of non-Hodgkin lymphomas; Z92.21 Personal history of antineoplastic chemotherapy; Z79.82 Long term (current) use of aspirin; Z79.899 Other long term (current) drug therapy; Z88.5 Allergy status to narcotic agent; Z88.2 Allergy status to sulfonamides; Z88.8 Allergy status to other drugs, medicaments and biological substances; Z88.1 Allergy status to other antibiotic agents; Z91.041 Radiographic dye allergy status; Z82.5 Family history of asthma and other chronic lower respiratory diseases
CPT/HCPCS: 36415; 71045; 80048; 80053; 80061; 82607; 82728; 82746; 83540; 83550; 83735; 83880; 84443; 84484; 85025; 85610; 85730; 86850; 86900; 86901; 93005; 93454; 94640; 96365; 99156; 99157; 99284; A9270-GY; C1887; J1644; J1650; J1756; J1940; J2250; J3010; J3475; J3535; J7512